=== PATIENT | female | born 1955 | race African-American/Black ===

== ENCOUNTER 2017-02-04 15:15 | Emergency (ER) | payer MEDICAID, MEDICARE ==
[~2017-02-04] VITALS: Ht 160 cm; Wt 72.6 kg
[~2017-02-04 15:15] MED LIST: ACET-1574 PO; ACET650S11 RC; ACET650S19 PO; ALBU2.5V5 IH; AMLO10TA2 PO; AMOX1TAB10 PO; AMOX1TAB61 PO; ASPI-482 PO; BISA10SU2 RC; CALC0.25 PO; CALC200T3 PO; CINA30TA2 PO; CIPR250T30 PO; CYCL10TA2 PO; DASA50TA PO; DEXT38GE2 PO; FLUT1DIS3 IH; FURO40TA4 PO; FURO80TA72 PO; GLUC1KIT IM; GUAI118L3 PO; HYDR-2758 PO; HYDR-2869 PO; LABE200T2 PO; LAMO100T5 PO; LAMO200T PO; LOSA25TA4 PO; MAG360OR24 PO; MAGN400O7 PO; MUPI15CR8 TP; PHEN14.52 MM; PHEN300C PO; POTA20TA82 PO; PROAIR HFA8.5 GM IH; SEVE800T9 PO; SIMV20TA3 PO
[2017-02-04] MEDS ORDERED: FOSPHENYTOIN 1,000 MG in IV NORMAL SALINE 50ML 50 ML IV ONE (17:15)
[2017-02-04 17:16] LABS: BASO # 0.3 x10^3/uL (0.0-0.2); BASO % 1 % (0-3); EOS % 1 % (0-3); HEMATOCRIT 32.7 % (36.0-47.0); HEMOGLOBIN 10.4 g/dL (12.0-15.5); LYMPH # 1.7 x10^3/uL (1.0-4.8); LYMPH % 4 % (24-48); MEAN CORPUSCULAR HEMOGLOBIN 32 pg (25-35); MEAN CORPUSCULAR HGB CONC 32 g/dL (31-37); MEAN CORPUSCULAR VOLUME 100 fL (79-100); MONO % 14 % (0-9); NEUT % 81 % (31-73); PLATELET COUNT 340 x10^3/uL (140-400); RED BLOOD COUNT 3.26 x10^6/uL (3.50-5.40); RED CELL DISTRIBUTION WIDTH 18.9 % (11.5-14.5)
[2017-02-04 17:18] LABS: WHITE BLOOD COUNT 44.5 x10^3/uL (4.0-11.0)
[2017-02-04 17:41] LABS: % BASOS 2 % (0-3); % EOS 1 % (0-5); ANISOCYTOSIS SLIGHT; PLT ESTIMATE ADEQUATE (ADEQUATE); POLYCHROMASIA SLIGHT
--- NOTE | 2017-02-04 17:46 | ED.ADGEN ---
Past Medical History Past Medical History: Cancer, CHF, Hypertension, Renal Failure, Seizure, Other Additional Past Medical Histor: leukemia Past Surgical History: Appendectomy, Colectomy, Hysterectomy, Other Additional Past Surgical Histo: right dialysis fistula; left lumpectomy; PACEMAKER Alcohol Use: None Drug Use: None Adult General Chief Complaint Chief Complaint: SEIZURE HPI HPI Patient is a 61 year old -[place] female with history of end-stage renal disease on dialysis and epilepsy presents with witnessed tonic-clonic seizure while at dialysis. Patient does not recall episode and was briefly postictal falling episode. Patient is currently prescribed Augmentin, but has been out of her seizure medication for the past 30 days as her local neurologist no longer takes her insurance type. Currently, patient reports mild headache, and dizziness. Denies nausea. Denies chest pain shortness of breath palpitations, fever chills, sweats, or extremity weakness or loss of sensation. No other acute symptoms or complaints. Review of Systems Review of Systems Review symptoms as per history of present illness. All other review symptoms are negative. Current Medications Current Medications Current Medications Medications (Trade) Dose Ordered Sig/Sg Start Time Stop Time Status Last Admin Dose Admin Fosphenytoin Sodium 1000 mg/ Sodium Chloride 70 ml @ 280 mls/hr 1X ONCE 02/04/17 17:15 02/04/17 17:29 DC 02/04/17 17:25 280 MLS/HR Allergies Allergies Allergies Coded Allergies Type Severity Reaction Last Updated Verified acetaminophen Allergy Intermediate Swelling 03/11/16 Yes lisinopril Allergy Intermediate 11/17/13 Yes Physical Exam Physical Exam Constitutional: Well developed, well nourished, no acute distress, non-toxic appearance. HENT: Normocephalic, atraumatic, bilateral external ears normal, oropharynx moist, no oral exudates, nose normal. Eyes: PERRLA, EOMI. Neck: Normal range of motion. Cardiovascular:Heart rate regular rhythm, no murmur. Lungs & Thorax: Bilateral breath sounds clear to auscultation. Abdomen: Bowel sounds normal, soft, no tenderness. Skin: Warm, dry. Extremities: No tenderness. Neurologic: Alert and oriented X 3, normal motor function, normal sensory function, no focal deficits noted. Psychologic: Affect normal, judgement normal, mood normal. Current Patient Data Vital Signs Vital Signs Date Time Temp Pulse Resp B/P (MAP) Pulse Ox O2 Delivery O2 Flow Rate FiO2 02/04/17 19:10 60 12 109/59 (76) 96 Room Air 02/04/17 15:28 98.7 98.7 Lab Values Laboratory Tests Test 02/04/17 16:14 02/04/17 17:50 White Blood Count 44.5 x10^3/uL (4.0-11.0) *H Red Blood Count 3.26 x10^6/uL (3.50-5.40) L Hemoglobin 10.4 g/dL (12.0-15.5) L Hematocrit 32.7 % (36.0-47.0) L Mean Corpuscular Volume 100 fL (79-100) Mean Corpuscular Hemoglobin 32 pg (25-35) Mean Corpuscular Hemoglobin Concent 32 g/dL (31-37) Red Cell Distribution Width 18.9 % (11.5-14.5) H Platelet Count 340 x10^3/uL (140-400) Neutrophils (%) (Auto) 81 % (31-73) H Lymphocytes (%) (Auto) 4 % (24-48) L Monocytes (%) (Auto) 14 % (0-9) H Eosinophils (%) (Auto) 1 % (0-3) Basophils (%) (Auto) 1 % (0-3) Neutrophils # (Auto) 35.9 x10^3uL (1.8-7.7) H Lymphocytes # (Auto) 1.7 x10^3/uL (1.0-4.8) Monocytes # (Auto) 6.0 x10^3/uL (0.0-1.1) H Eosinophils # (Auto) 0.6 x10^3/uL (0.0-0.7) Basophils # (Auto) 0.3 x10^3/uL (0.0-0.2) H Segmented Neutrophils % 58 % (35-66) Band Neutrophils % 13 % (0-9) H Lymphocytes % 1 % (24-48) L Monocytes % 14 % (0-10) H Eosinophils % 1 % (0-5) Basophils % 2 % (0-3) Metamyelocytes % 7 % (0-0) H Myelocytes % 4 % (0-0) H Platelet Estimate Adequate (ADEQUATE) Polychromasia Slight Anisocytosis Slight Sodium Level 141 mmol/L (136-145) Potassium Level 4.1 mmol/L (3.5-5.1) Chloride Level 101 mmol/L (98-107) Carbon Dioxide Level 32 mmol/L (21-32) Anion Gap 8 (6-14) Blood Urea Nitrogen 25 mg/dL (7-20) H Creatinine 4.5 mg/dL (0.6-1.0) H Estimated GFR (Cockcroft-Gault) 12.1 BUN/Creatinine Ratio 6 (6-20) Glucose Level 82 mg/dL (70-99) Calcium Level 7.8 mg/dL (8.5-10.1) L Total Bilirubin 0.3 mg/dL (0.2-1.0) Aspartate Amino Transferase (AST) 21 U/L (15-37) Alanine Aminotransferase (ALT) 16 U/L (14-59) Alkaline Phosphatase 237 U/L (46-116) H Total Protein 7.7 g/dL (6.4-8.2) Albumin 3.2 g/dL (3.4-5.0) L Albumin/Globulin Ratio 0.7 (1.0-1.7) L Laboratory Tests 02/04/17 16:14 Laboratory Tests 02/04/17 17:50 EKG EKG [] Radiology/Procedures Radiology/Procedures [] Course & Med Decision Making Course & Med Decision Making Pertinent Labs and Imaging studies reviewed. (See chart for details) [Breakthrough seizure secondary to missed medications. Patient without focal neurologic deficits with stable vital signs in the emergency department. IV Cerebyx given. Incidental note of patient with chronicly elevated white blood cell count. Patient without infectious symptoms.] Dragon Disclaimer Dragon Disclaimer This electronic medical record was generated, in whole or in part, using a voice recognition dictation system. JOSE VARGAS DO Feb 04, 2017 17:46
[2017-02-04 18:09] LABS: CALCIUM 7.8 mg/dL (8.5-10.1); CREATININE 4.5 mg/dL (0.6-1.0); GFR 12.1; POTASSIUM 4.1 mmol/L (3.5-5.1)
[2017-02-04 18:17] LABS: ALBUMIN 3.2 g/dL (3.4-5.0); ALBUMIN/GLOBULIN RATIO 0.7 (1.0-1.7); TOTAL BILIRUBIN 0.3 mg/dL (0.2-1.0); TOTAL PROTEIN 7.7 g/dL (6.4-8.2)
[2017-02-04 19:10] VITALS: BP 109/59
== END 2017-02-04 20:06 | disposition home or self-care (01) ==
LOC: ER 15:15
DX: G40.909 Epilepsy, unspecified, not intractable, without status epilepticus (principal); D72.829 Elevated white blood cell count, unspecified; I13.2 Hypertensive heart and chronic kidney disease with heart failure and with stage 5 chronic kidney disease, or end stage renal disease; I50.9 Heart failure, unspecified; N18.6 End stage renal disease; Z95.0 Presence of cardiac pacemaker; Z99.2 Dependence on renal dialysis; Z90.710 Acquired absence of both cervix and uterus; Z90.49 Acquired absence of other specified parts of digestive tract; Z88.8 Allergy status to other drugs, medicaments and biological substances; Z88.6 Allergy status to analgesic agent
CPT/HCPCS: 36415; 80053; 85007; 85027; 96365; 99284; Q2009

== ENCOUNTER 2017-10-30 06:33 | Inpatient (IN) | payer MEDICARE ==
[2017-10-30 07:15] LABS: ADD MAN DIFF? NO
[2017-10-30 07:27] LABS: BASO % 1 % (0-3); EOS # 0.2 x10^3/uL (0.0-0.7); EOS % 3 % (0-3); HEMATOCRIT 31.9 % (36.0-47.0); HEMOGLOBIN 10.7 g/dL (12.0-15.5); LYMPH # 1.7 x10^3/uL (1.0-4.8); LYMPH % 21 % (24-48); MEAN CORPUSCULAR HEMOGLOBIN 35 pg (25-35); MEAN CORPUSCULAR HGB CONC 34 g/dL (31-37); MEAN CORPUSCULAR VOLUME 105 fL (79-100); MONO # 1.2 x10^3/uL (0.0-1.1); MONO % 14 % (0-9); NEUT # 5.1 x10^3uL (1.8-7.7); NEUT % 62 % (31-73); PLATELET COUNT 346 x10^3/uL (140-400); RED BLOOD COUNT 3.05 x10^6/uL (3.50-5.40); RED CELL DISTRIBUTION WIDTH 14.7 % (11.5-14.5); WHITE BLOOD COUNT 8.2 x10^3/uL (4.0-11.0)
[2017-10-30 07:41] LABS: TROPONINI < 0.017 ng/mL (0.000-0.055)
[2017-10-30 07:55] LABS: ALBUMIN 2.9 g/dL (3.4-5.0); ALBUMIN/GLOBULIN RATIO 0.7 (1.0-1.7); ALK PHOS 160 U/L (46-116); ALT (SGPT) 10 U/L (14-59); ANION GAP 17 (6-14); AST (SGOT) 13 U/L (15-37); BLOOD UREA NITROGEN 115 mg/dL (7-20); BUN/CREATININE RATIO 9 (6-20); CALCIUM 8.2 mg/dL (8.5-10.1); CARBON DIOXIDE 25 mmol/L (21-32); CHLORIDE 99 mmol/L (98-107); CREATININE 13.3 mg/dL (0.6-1.0); GFR 3.4; GLUCOSE 91 mg/dL (70-99); SODIUM 141 mmol/L (136-145); TOTAL BILIRUBIN 0.3 mg/dL (0.2-1.0); TOTAL PROTEIN 7.3 g/dL (6.4-8.2)
[2017-10-30 07:56] LABS: POTASSIUM 6.1 mmol/L (3.5-5.1)
[2017-10-30] MEDS: NITROGLYCERIN SUBLINGUAL 0.4 MG BOTTLE OF 25. SL (08:10)
[2017-10-30] MEDS ORDERED: ONDANSETRON PF 4 MG/2 ML VIAL. IV ×2 (08:15→09:15)
[2017-10-30] MEDS ORDERED: fentaNYL PF VIAL 100 MCG/2 ML VIAL IV ×2 (08:15→09:30)
[2017-10-30] MEDS ORDERED: CONTRAST GIVEN MC (08:45)
[2017-10-30] MEDS ORDERED: IOHEXOL 300 MG/ML 100ML VIAL. IV (08:45)
[2017-10-30] MEDS ORDERED: CALCIUM CARBONATE 500 MG TAB.CHEW PO (09:15)
[2017-10-30] MEDS ORDERED: ALBUTEROL SULFATE 2.5 MG/3 ML NEBU. CONT NEB (09:15)
[2017-10-30] MEDS: lamoTRIgine 100 MG TABLET. PO ×2 (10:00→21:46)
[2017-10-30] MEDS: ASPIRIN ENTERIC COATED 81 MG TABLET.DR. PO (10:00)
[2017-10-30] MEDS: CINACALCET HCL 30 MG TABLET PO (10:00)
[2017-10-30] MEDS ORDERED: IV NORMAL SALINE 1000ML BAG 1,000 ML IV (10:11)
[2017-10-30] MEDS ORDERED: DIALYSIS PATIENT. MC (10:15)
[2017-10-30] MEDS ORDERED: ALBUMIN HUMAN 25% 200 ML IV (10:15)
[2017-10-30] MEDS: SEVELAMER CARBONATE 800 MG TABLET. PO ×2 (11:51→17:13)
[2017-10-30 13:17] LABS: POTASSIUM 3.2 mmol/L (3.5-5.1)
[2017-10-30] MEDS: traMADol 50 MG TABLET PO (15:56)
[2017-10-30] MEDS: PHENYTOIN SODIUM EXTENDED 100 MG CAPSULE PO (21:46)
[2017-10-31] MEDS: ASPIRIN ENTERIC COATED 81 MG TABLET.DR. PO (09:19)
[2017-10-31] MEDS: SEVELAMER CARBONATE 800 MG TABLET. PO ×3 (09:22→17:16)
[2017-10-31] MEDS: lamoTRIgine 100 MG TABLET. PO ×2 (09:27→20:33)
[2017-10-31] MEDS: CINACALCET HCL 30 MG TABLET PO (09:29)
[2017-10-31] MEDS ORDERED: MAGNESIUM SULFATE 2GM 50 ML IV (10:45)
[2017-10-31] MEDS: FOLIC/VIT B COMP W-C (RENAL) TABLET. PO (11:57)
[2017-10-31] MEDS: CALCIUM CARBONATE 500 MG TAB.CHEW PO (18:21)
[2017-10-31] MEDS: DARBEPOETIN ALFA 60 MCG/0.3 ML DISP.SYRIN. SQ (20:33)
[2017-10-31] MEDS: PHENYTOIN SODIUM EXTENDED 100 MG CAPSULE PO (20:33)
[2017-11-01 05:10] LABS: HEMOGLOBIN 10.8 g/dL (12.0-15.5)
[2017-11-01 05:38] LABS: ALBUMIN 2.8 g/dL (3.4-5.0); ANION GAP 11 (6-14); BLOOD UREA NITROGEN 64 mg/dL (7-20); CALCIUM 8.4 mg/dL (8.5-10.1); CARBON DIOXIDE 29 mmol/L (21-32); CHLORIDE 96 mmol/L (98-107); CREATININE 9.7 mg/dL (0.6-1.0); GLUCOSE 83 mg/dL (70-99); PHOSPHORUS 5.4 mg/dL (2.6-4.7); SODIUM 136 mmol/L (136-145)
[2017-11-01 05:45] LABS: POTASSIUM 5.5 mmol/L (3.5-5.1)
[2017-11-01 05:54] LABS: MAGNESIUM 2.6 mg/dL (1.8-2.4)
[2017-11-01] MEDS ORDERED: IV NORMAL SALINE 1000ML BAG 1,000 ML IV (08:41)
[2017-11-01] MEDS ORDERED: DIALYSIS PATIENT. MC ×2 (08:45)
[2017-11-01] MEDS: SEVELAMER CARBONATE 800 MG TABLET. PO ×2 (12:00→13:08)
[2017-11-01] MEDS: FOLIC/VIT B COMP W-C (RENAL) TABLET. PO (13:08)
[2017-11-01] MEDS: lamoTRIgine 100 MG TABLET. PO (13:08)
[2017-11-01] MEDS: ASPIRIN ENTERIC COATED 81 MG TABLET.DR. PO (13:09)
[2017-11-01] MEDS: CINACALCET HCL 30 MG TABLET PO (13:09)
== END 2017-11-01 13:52 | disposition home health service (06) | DRG 291 ==
LOC: ER 06:33 → 5 SOUTH 07:30
PROVIDERS: Internal Medicine
PROC: 5A1D70Z Performance of Urinary Filtration, Intermittent, Less than 6 Hours Per Day (ICD-10-PCS; principal; 2017-10-30)
PROC: 5A1D70Z Performance of Urinary Filtration, Intermittent, Less than 6 Hours Per Day (ICD-10-PCS; 2017-11-01)
DX: I13.2 Hypertensive heart and chronic kidney disease with heart failure and with stage 5 chronic kidney disease, or end stage renal disease (principal); N18.6 End stage renal disease; E87.5 Hyperkalemia; F32.9 Major depressive disorder, single episode, unspecified; I50.9 Heart failure, unspecified; I25.10 Atherosclerotic heart disease of native coronary artery without angina pectoris; D63.1 Anemia in chronic kidney disease; E21.3 Hyperparathyroidism, unspecified; J44.9 Chronic obstructive pulmonary disease, unspecified; Z79.82 Long term (current) use of aspirin; Z85.6 Personal history of leukemia; Z90.49 Acquired absence of other specified parts of digestive tract; Z90.710 Acquired absence of both cervix and uterus; Z88.8 Allergy status to other drugs, medicaments and biological substances; Z95.0 Presence of cardiac pacemaker; Z99.2 Dependence on renal dialysis
CPT/HCPCS: 36415; 71045; 78582; 80053; 80069; 83735; 84132; 84134; 84484; 85018; 85025; 93005; 94760; 96374; 97161-GP; 99285-25; A9540; A9558; J0881

== ENCOUNTER 2020-08-08 18:56 | Emergency (ER) | payer MEDICARE, MEDICAID ==
[~2020-08-08] VITALS: Ht 160 cm; Wt 75.5 kg
[~2020-08-08 18:56] MED LIST changes: -ACET-1574 PO; +ACET-1871 PO; +ACET650S PO; -ACET650S19 PO; +ALBU2.5V8 IH; +AMLO-187 PO; -AMLO10TA2 PO; -BISA10SU2 RC; +BISA10SU4 RC; +HALO2TAB PO; -HYDR-2758 PO; +HYDR-2761 PO; +IMAT400T6 PO; -LABE200T2 PO; +LABE200T4 PO; -LAMO200T PO; +LAMO200T6 PO; -LOSA25TA4 PO; +LOSA25TA54 PO; +POTA20TA4 PO; -POTA20TA82 PO; -PROAIR HFA8.5 GM IH; +SIMV20TA18 PO; -SIMV20TA3 PO
--- NOTE | 2020-08-08 19:12 | ED.ADGEN ---
Past Medical History Past Medical History: Cancer, CHF, Hypertension, Renal Failure, Seizure, Other Additional Past Medical Histor: leukemia Past Surgical History: Appendectomy, Colectomy, Hysterectomy, Other Additional Past Surgical Histo: right dialysis fistula; left lumpectomy;PAC EMAKER Smoking Status: Never Smoker Alcohol Use: None Drug Use: None General Adult HPI: HPI: Patient 64-year-old female with past medical history of epilepsy who presents to the emergency room after having 3 seizures today. Patient states she is feeling back to normal. She states that she typically has clusters of seizures. She does follow with a neurologist at but has not seen them for quite some time. After her last cluster of seizures she did not follow-up with them and no changes were made to her medications. She denies any other complaints. She has not been ill recently. She denies any chest pain, shortness of breath, URI symptoms, fevers, chills, sweats, dysuria, abdominal pain, nausea, vomiting, missed medication. She has generalized seizures. They typically last a minute or less. She did her dialysis today and was able to complete it. Review of Systems: Review of Systems: Complete ROS is negative unless otherwise documented in HPI Allergies: Allergies: Allergies Coded Allergies Type Severity Reaction Last Updated Verified acetaminophen Allergy Intermediate Swelling 03/11/16 Yes lisinopril Allergy Intermediate 11/17/13 Yes Physical Exam: PE: General: Awake, alert, NAD. Well Nourished, well hydrated. Cooperative HEENT: Atraumatic, EOMI, PERRL, airway patent, moist oral mucosa Neck: Supple, trachea midline Respiratory: CTA bilaterally, normal effort, no wheezing/crackles CV: RRR, no murmur, cap refill <2 GI: Soft, nondistended, nontender, no masses MSK: No obvious deformities, fistula on right upper arm Skin: Warm, dry, intact Neuro: A&O x3, speech NL, 5/5 strength in BUE/BLE distally and proximally, CN 2- 12 intact, cerebellar testing normal Psych: Normal affect, normal mood, not suicidal or homicidal EKG: EKG: [] Heart Score: Risk Factors: Risk Factors: DM, Current or recent (<one month) smoker, HTN, HLP, family h istory of CAD, obesity. Risk Scores: Score 0 - 3: 2.5% MACE over next 6 weeks - Discharge Home Score 4 - 6: 20.3% MACE over next 6 weeks - Admit for Clinical Observation Score 7 - 10: 72.7% MACE over next 6 weeks - Early Invasive Strategies Radiology/Procedures: Radiology/Procedures: [] Course & Med Decision Making: Course & Med Decision Making Pertinent Labs and Imaging studies reviewed. (See chart for details) Patient is a 64-year-old female who presents to the emergency room complaining of a cluster of seizures. Patient is neurologically intact and back at her baseline at this time. She has not missed any of her home medications. Is likely that she needs medication adjustments. I have discussed with her that she should follow-up with her neurologist tomorrow morning to determine if they would like to change her medications. She was loaded with Keppra here in the emergency room. Lab work was done to rule out any causes that would suggest a lower seizure threshold. Dragon Disclaimer: Dragon Disclaimer: This electronic medical record was generated, in whole or in part, using a voice recognition dictation system. Departure Departure Impression: Primary Impression: Seizure Additional Impression: ESRD (end stage renal disease) Disposition: 01 DC HOME SELF CARE/HOMELESS Condition: STABLE Referrals: [facility] (PCP) Patient Instructions: Seizure, Adult Additional Instructions: Please call your neurologist tomorrow to discuss any medication changes they would like to make. Problem Qualifiers CHADWICK CADENA MD Aug 08, 2020 19:12
[2020-08-08] MEDS ORDERED: levETIRAcetam 500 MG TABLET PO ONE (19:15)
[2020-08-08 19:47] LABS: BASO % 0 % (0-3); EOS % 0 % (0-3); HEMATOCRIT 31.9 % (36.0-47.0); HEMOGLOBIN 10.8 g/dL (12.0-15.5); LYMPH # 0.8 x10^3/uL (1.0-4.8); LYMPH % 10 % (24-48); MEAN CORPUSCULAR HEMOGLOBIN 35 pg (25-35); MEAN CORPUSCULAR HGB CONC 34 g/dL (31-37); MEAN CORPUSCULAR VOLUME 103 fL (79-100); MONO # 0.7 x10^3/uL (0.0-1.1); MONO % 9 % (0-9); NEUT # 6.3 x10^3/uL (1.8-7.7); NEUT % 80 % (31-73); PLATELET COUNT 237 x10^3/uL (140-400); WHITE BLOOD COUNT 7.8 x10^3/uL (4.0-11.0)
[2020-08-08 19:55] LABS: CREATININE 4.5 mg/dL (0.6-1.0); GFR 11.9; POTASSIUM 3.4 mmol/L (3.5-5.1)
[2020-08-08 20:03] VITALS: BP 140/72
== END 2020-08-08 20:26 | disposition home or self-care (01) ==
LOC: ER 18:56
DX: R56.9 Unspecified convulsions (principal); N18.6 End stage renal disease; Z85.9 Personal history of malignant neoplasm, unspecified; Z90.89 Acquired absence of other organs; Z95.0 Presence of cardiac pacemaker; Z98.890 Other specified postprocedural states; Z88.8 Allergy status to other drugs, medicaments and biological substances
CPT/HCPCS: 36415; 80048; 85025; 99284

== ENCOUNTER 2021-06-21 23:30 | Inpatient (IN) | payer MEDICARE, OTHER ==
[~2021-06-21] VITALS: Ht 160 cm; Wt 72.9 kg
[~2021-06-21 23:30] MED LIST changes: -CINA30TA2 PO; +CINA30TA24 PO; +CYCL10TA19 PO; -CYCL10TA2 PO
--- NOTE | 2021-06-21 23:30 | NUR ---
The patient, BETZY LOMAS, 65 y/o, F admitted by TUSHAR GLASS III, DO, was given written information regarding hospital policies, unit procedures and contact persons. Valuables were checked and documented. calllight in reach will cont to monitor pt status and safety. pmrn
[2021-06-21 23:35] VITALS: BP 148/68
[2021-06-22] MEDS ORDERED: 0.9 % SODIUM CHLORIDE 10 ML DISP.SYRIN. IV PRN (01:00)
[2021-06-22 02:52] VITALS: BP 154/77
[2021-06-22 07:00] VITALS: BP 140/64
--- NOTE | 2021-06-22 08:10 | PDOC1 ---
History and Physical Date of Admission Date of Admission DATE: 06/22/21 TIME: 08:10 Identification/Chief Complaint Chief Complaint syncope Source Source: Chart review, Patient History of Present Illness History of Present Illness MS. Wilkerson was transferred here last night from [facility], s/p a syncopal episode at home with a laceration to her mouth from the fall. She missed HD on saturday due to an access issue, is M/w/f schedule, then went to HD on 06/21, 2 liters removed, and she reports feeling lightheaded and subsequently passing out upon standing. has been compliant with her seizure meds, poss bipolar history from her meds on eliquis, Past Medical History Cardiovascular: CAD, CHF, HTN Pulmonary: COPD CENTRAL NERVOUS SYSTEM: Periperal neuropathy, Seizure GI: Constipation Heme/Onc: Cancer Musculoskeletal: low back pain, Osteoarthritis Renal/: Chronic renal failure Endocrine: Hyperparathyroidism Past Surgical History Past Surgical History: Pacemaker, Hysterectomy, Colon Resection, Other Family History Family History: Hypertension, Family History Unknown Social History Smoke: No ALCOHOL: none Drugs: None Current Medications Current Medications Current Medications Sodium Chloride (Normal Saline Flush) 3 ml PRN DAILY PRN IV AFTER MEDS AND BLOOD DRAWS; Start 06/22/21 at 01:00 Active Scripts Active Haloperidol 2 Mg Tablet 1 Tab PO BID 30 Days Lamictal (Lamotrigine) 100 Mg Tablet 300 Mg PO BID Reported Amlodipine Besylate 10 Mg Tablet 10 Mg PO DAILY Gleevec (Imatinib Mesylate) 400 Mg Tablet 400 Mg PO DAILY Tums (Calcium Carbonate) 200 Mg Tab.chew 200 Mg PO Sensipar (Cinacalcet Hcl) 30 Mg Tablet 2 Tab PO DAILY Renvela (Sevelamer Carbonate) 800 Mg Tablet 3 Tab PO TID Albuterol Sulfate Neb Soln (Albuterol Sulfate) 2.5 Mg/3 Ml Vial.neb 2.5 Mg IH Q4HRS PRN Aspir 81 (Aspirin) 81 Mg Tablet.dr 81 Mg PO DAILY NEXT DOSE: 04/21/15 AM Phenytek (Phenytoin Sodium Extended) 300 Mg Capsule 500 Mg PO QHS NEXT DOSE: 04/20/15 PM Allergies Allergies: Coded Allergies: acetaminophen (Verified Allergy, Intermediate, Swelling, 03/11/16) (FROM TYLENOL) lisinopril (Verified Allergy, Intermediate, 11/17/13) ROS General: YES: Fatigue, Malaise; No: Chills, Night Sweats, Appetite, Other PSYCHOLOGICAL ROS: YES: Memory difficulties, Sleep disturbances; No: Anxiety, Behavioral Disorder, Concentration difficultie, Decreased libido, Depression, Disorientation, Hallucinations, Hostility, Irritablity, Mood Swings, Obsessive thoughts, Other Eyes: Yes Itchy Eyes; No Blurry vision, No Decreased vision, No Double vision, No Dry eyes, No Excessive tearing, No Loss of vision, No Other HEENT: YES: Oral lesions; No: Heacaches, Visual Changes, Vertigo, Other ENDOCRINE: No: Breast Changes, Galactorrhea, Hair Pattern Changes, Hot Flashes, Malaise/lethargy, Mood Swings, Palpitations, Polydipsia/polyuria, Skin Changes, Temperature Intolerance, Unexpected Weight Changes, Other Respiratory: No: Cough, Hemoptysis, Orthopnea, Pleuritic Pain, Tachypnea, Wheezing, Other Cardiovascular: No Chest Pain, No Palpitations, No Orthopnea, No Paroxysmal Noc. Dyspnea, No Edema, No Lt Headedness, No Other Gastrointestinal: Yes Nausea; No Vomiting, No Abdominal Pain, No Diarrhea, No Constipation, No Melena, No Hematochezia, No Other Genitourinary: No Dysuria, No Frequency, No Incontinence, No Hematuria, No Retention, No Discharge, No Urgency, No Pain, No Flank Pain, No Other, No , No , No , No , No , No , No Musculoskeletal: Yes Joint Stiffness; No Gait Disturbance, No Joint Pain, No Joint Swelling, No Muscle Pain, No Muscular Weakness, No Pain In:, No Swelling In:, No Other Neurological: No Behavorial Changes, No Bowel/Bladder ControlChng, No Confusion, No Dizziness, No Gait Disturbance, No Headaches, No Impaired Coord/balance, No Memory Loss, No Numbness/Tingling, No Seizures, No Speech Problems, No Tremors, No Visual Changes, No Weakness, No Other Skin: Yes Dry Skin; No Eczema, No Hair Changes, No Lumps, No Mole Changes, No Mottling, No Nail Changes, No Pruritus, No Rash, No Skin Lesion Changes, No Other, No Acne Physical Exam General: Alert, Cooperative HEENT: PERRLA, Mucous membr. moist/pink, Other (upper lip swollen 3 stitches in upper lip, clear base, no redness ) Lungs: Normal air movement Heart: no gallops, no murmurs Abdomen: No tenderness Rectal Exam: not examined Extremities: No edema, Normal pulses Neuro: Normal speech, Normal tone Psych/Mental Status: Mental status NL Vitals Vitals Vital Signs Date Time Temp Pulse Resp B/P (MAP) Pulse Ox O2 Delivery O2 Flow Rate FiO2 06/22/21 02:52 98.1 73 16 154/77 (102) 100 Room Air 98.1 VTE Prophylaxis Ordered VTE Prophylaxis Devices: No VTE Pharmacological Prophylaxi: Yes Assessment/Plan Assessment/Plan syncope, on HD, eval for arrythmia, obs on tele at least 23 hours History of epilepsy on phenytoin and lamotrigine, she requested to see Dr. Cannon, meds reviewed, End-stage renal disease, on dialysis chronic distolic CHF, HTN Hx leukemia, NOS will hold Haldol started here months ago for agitation when we still had a psychiatrist, no diagnosis given at the time, plan was to wean off, Justifications for Admission Other Justification ANTIONE ROWAN MD Jun 22, 2021 08:10
[2021-06-22] MEDS ORDERED: ALBUTEROL SULFATE 2.5 MG/3 ML NEBU. INH PRN (08:30)
[2021-06-22] MEDS ORDERED: CALCIUM CARBONATE 500 MG TAB.CHEW PO SCH (09:00)
[2021-06-22] MEDS ORDERED: ASPIRIN ENTERIC COATED 81 MG TABLET.DR. PO SCH (09:00)
[2021-06-22] MEDS ORDERED: CINACALCET HCL 30 MG TABLET PO SCH (09:00)
[2021-06-22] MEDS ORDERED: HALOPERIDOL 2 MG TABLET. PO SCH (09:00)
[2021-06-22] MEDS ORDERED: lamoTRIgine 100 MG TABLET. PO SCH (09:00)
[2021-06-22] MEDS ORDERED: SEVELAMER CARBONATE 800 MG TABLET. PO SCH (09:00)
--- NOTE | 2021-06-22 09:53 | PDOC2 ---
NEUROLOGY CONSULT Date of Service DOS: DATE: 06/22/21 TIME: 09:45 Reason for Consult Reason for Consult: Fall, history of epilepsy Referring Physician Referring Physician: Dr. Solorio Source Source: Chart review, Patient History of Present Illness History of Present Illness Patient is a 65-year-old right-handed female who fainted at home after dialysis yesterday. She remembers going to dialysis and the next thing she remembers is being on the floor at home. She has had syncope in the past. She has a long history of intractable epilepsy with abnormal EEG showing a left temporal focus. I have followed her for this, she was last in the office in 2016. Since then, she has been going to . I see that they recently switched her from lamotrigine to zonisamide. I did see the patient 18 months ago during the hospital stay for metabolic. Patient did have a laceration repair at [facility]. She had negative imaging studies as reviewed below. She still feels a little woozy, she says. She has a past history of strokes and peripheral neuropathy as well. She has had strokes in the past. With patient's permission I reviewed her [facility] chart. Past Medical History Cardiovascular: HTN, Hyperlipidemia, Other (bradycardia) Pulmonary: Asthma, Pneumonia CENTRAL NERVOUS SYSTEM: Periperal neuropathy, Seizure (Intractable epilepsy) Heme/Onc: Anemia NOS, Cancer (Chronic myelocytic leukemia) ENT: Other (Glaucoma) Renal/: Chronic renal insuff (Stage IV) Endocrine: Hyperparathyroidism (Secondary), Other (Vitamin D deficiency) Past Surgical History Past Surgical History: Pacemaker, Cataract Removal, Other (Benign breast lump) Family History Family History: No pertinent hx Social History Social History , no alcohol or tobacco Current Medications Current Medications Current Medications Sodium Chloride (Normal Saline Flush) 3 ml PRN DAILY PRN IV AFTER MEDS AND BLOOD DRAWS; Start 06/22/21 at 01:00 Albuterol Sulfate (Ventolin Neb Soln) 2.5 mg PRN Q4HRS PRN INH SHORTNESS OF BREATH; Start 06/22/21 at 08:30; Status Cancel Amlodipine Besylate (Norvasc) 5 mg DAILY PO ; Start 06/22/21 at 09:00; Status Cancel Aspirin (Ecotrin) 81 mg DAILY PO ; Start 06/22/21 at 09:00; Status Cancel Calcium Carbonate/ Glycine (Tums) 500 mg BID PO ; Start 06/22/21 at 09:00; Status Cancel Cinacalcet (Sensipar) 60 mg DAILY PO ; Start 06/22/21 at 09:00; Status Cancel Haloperidol (Haldol) 2 mg BID PO ; Start 06/22/21 at 09:00; Status Cancel Lamotrigine (LaMICtal) 300 mg BID PO ; Start 06/22/21 at 09:00; Status UNV Sevelamer Carbonate (Renvela) 2,400 mg TIDWMEALS PO ; Start 06/22/21 at 09:00; Status Cancel Phenytoin Sodium (Dilantin) 500 mg QHS PO ; Start 06/22/21 at 21:00; Status Cancel Active Scripts Active Haloperidol 2 Mg Tablet 1 Tab PO BID 30 Days Lamictal (Lamotrigine) 100 Mg Tablet 300 Mg PO BID Reported Amlodipine Besylate 10 Mg Tablet 10 Mg PO DAILY Gleevec (Imatinib Mesylate) 400 Mg Tablet 400 Mg PO DAILY Tums (Calcium Carbonate) 200 Mg Tab.chew 200 Mg PO Sensipar (Cinacalcet Hcl) 30 Mg Tablet 2 Tab PO DAILY Renvela (Sevelamer Carbonate) 800 Mg Tablet 3 Tab PO TID Albuterol Sulfate Neb Soln (Albuterol Sulfate) 2.5 Mg/3 Ml Vial.neb 2.5 Mg IH Q4HRS PRN Aspir 81 (Aspirin) 81 Mg Tablet.dr 81 Mg PO DAILY NEXT DOSE: 04/21/15 AM Phenytek (Phenytoin Sodium Extended) 300 Mg Capsule 500 Mg PO QHS NEXT DOSE: 04/20/15 PM Allergies Allergies: Coded Allergies: acetaminophen (Verified Allergy, Intermediate, Swelling, 03/11/16) (FROM TYLENOL) lisinopril (Verified Allergy, Intermediate, 11/17/13) ROS Review of System Negative for fever, chills, weight loss, shortness of breath, chest pain, indigestion, hematochezia, melena, and dysuria. Full 14-point review of systems is negative. Physical Exam Physical Examination General: Well-developed, well-nourished black female in no acute distress HEENT: Normocephalic andatraumatic.Temporal arteriespulsatile and nontender. Neck: Supple without bruit, no meningismus Musculoskeletal: Stability:see neurologic. Gait exam:see neurologic. Tone:see neurologic.Strength:see neurologic. Neurological: Mental Status:orientation, memory, attention span/concentration, language, fund of knowledge: Lethargic, arouses fairly easily, can tell me her name, follows a few commands, does not know date, does know location location. Cranial Nerves:Pupils equal and reactive to light, extraocular movements areintact, visual kearns are full to confrontation. Facial sensation is normal. There is a right central facial weakness. Vestibulo-ocular reflex is intact. Palate elevates and tongue protrudes in midline. All other cranial related problems are negative except as mentioned before.Reflexes:1+ and symmetric with flexor plantar responses. Motor:4/5 strength, weaker on the right, with normal tone and bulk. Coordination and gait:not cooperative. Sensory:stocking loss. Vitals VITALS Vital Signs Date Time Temp Pulse Resp B/P (MAP) Pulse Ox O2 Delivery O2 Flow Rate FiO2 06/22/21 07:00 98.6 72 16 140/64 (89) 100 Room Air 98.6 Images Images [facility], 06/21: CT HEAD INDICATION: Reason: syncope, fall COMPARISON: None Available. Exposure: One or more of the following individualized dose reduction techniques were utilized for this examination: 1. Automated exposure control 2. Adjustment of the mA and/or kV according to patient size 3. Use of iterative reconstruction technique TECHNIQUE: 5 mm contiguous axial images were obtained from the skull base to the vertex in both bone and soft tissue algorithm. FINDINGS: Mild bilateral periventricular white matter hypodensities likely chronic small vessel ischemic disease. Mild soft tissue swelling identified in the right forehead region likely secondary to injury. No evidence of acute intracranial hemorrhage. No extra-axial fluid collections. No mass effect or midline shift. Ventricular size is appropriate. Basal cisterns are patent. No fractures identified.Sutton-white differentiation is preserved.Globes and orbi ts are within normal limits. Paranasal sinuses and mastoid air cells are clear. CT CERVICAL SPINE INDICATION: Reason: syncope / Spl. Instructions: / History: COMPARISON: None Available. Technique: 2.5 mm contiguous axial images were obtained from the skull base through the cervicothoracic junction in both bone and soft tissue algorithm. Additional sagittal and coronal reconstructions were also performed. FINDINGS: Vertebral body height and alignment are maintained. Cervical lordosis is preserved. The lateral masses of C1 are aligned upon C2. No fractures identified. The bony canal is patent throughout. Moderate intervertebral disc height loss identified in cervical spine most at C5-C6 vertebral levels with small anterior and posterior osteophyte formation. The paraspinous soft tissues are unremarkable. Visualized intracranial contents are unremarkable. Lung apices are clear. IMPRESSION: 1. No acute intracranial findings. Mild soft tissue swelling identified in the right forehead region likely secondary to injury. 2. No acute fracture cervical spine. 3. Moderate degenerative changes cervical spine. Assessment/Plan Assessment/Plan Impression: Syncope, fall, head injury Prior stroke although I do not find a focal exam last time I saw her in 2019. Intractable left temporal lobe epilepsy Recommendations: Current anticonvulsants Check phenytoin level Repeat head CT tomorrow, has a pacemaker Elevated troponin level work-up per internal medicine, maximum was [address] Solorio Thank you for letting me help with the patient's care. YISEL GILLESPIE MD Jun 22, 2021 09:53
[2021-06-22] MEDS ORDERED: APIX5TAB PO (10:15)
[2021-06-22] MEDS ORDERED: PHEN200C3 PO (10:15)
[2021-06-22] MEDS ORDERED: NITR0.4T2 SL (10:15)
[2021-06-22] MEDS ORDERED: PHEN30CA PO (10:15)
[2021-06-22] MEDS ORDERED: CLON0.5T4 PO (10:15)
[2021-06-22 11:00] VITALS: BP 145/65
[2021-06-22] MEDS ORDERED: METO-239 PO (11:22)
[2021-06-22] MEDS ORDERED: FLUT16SP NS (11:22)
[2021-06-22] MEDS ORDERED: ATOR40TA59 PO (11:22)
[2021-06-22] MEDS ORDERED: DICL100G28 TP (11:22)
[2021-06-22] MEDS ORDERED: ZONI100C26 PO (11:22)
[2021-06-22] MEDS ORDERED: AMLO-186 PO (11:22)
--- NOTE | 2021-06-22 11:24 | PDOC2 ---
CONSULT Date of Consult Date of Consult DATE: 06/22/21 TIME: 11:20 Reason for Consult Reason for Consult: ESRD Referring Physician Referring Physician: MARIA LUISA Identification/Chief Complaint Chief Complaint FALL Source Source: Chart review, Patient History of Present Illness Reason for Visit: THIS IS A 65 YR OLD PT WITH ESRD. ON HD MWF. HAS A RIGHT ARM AVF. HAD A SYNCOPE EPISODE WITH LACERATION TO HER LEFT UPPER LIP AREA. NEUROLOGY EVALUATION ONGOING AT THIS TIME. SHE HAD A RIGHT ARM AV ACCESS THROMBECTOMY ON SATURDAY. HAD HER OP HD YESTERDAY Past Medical History Cardiovascular: HTN, Hyperlipidemia, Other (bradycardia) Pulmonary: Asthma, Pneumonia CENTRAL NERVOUS SYSTEM: Periperal neuropathy, Seizure (Intractable epilepsy) GI: Constipation Heme/Onc: Anemia NOS, Cancer (Chronic myelocytic leukemia) Musculoskeletal: low back pain, Osteoarthritis ENT: Other (Glaucoma) Renal/: Chronic renal insuff (Stage IV) Endocrine: Hyperparathyroidism (Secondary), Other (Vitamin D deficiency) Past Surgical History Past Surgical History: Pacemaker, Cataract Removal, Other (Benign breast lump) Family History Family History: Hypertension, Family History Unknown Social History No ALCOHOL: none Drugs: None Lives: with Family Current Medications Current Medications Current Medications Sodium Chloride (Normal Saline Flush) 3 ml PRN DAILY PRN IV AFTER MEDS AND BLOOD DRAWS; Start 06/22/21 at 01:00 Albuterol Sulfate (Ventolin Neb Soln) 2.5 mg PRN Q4HRS PRN INH SHORTNESS OF BREATH; Start 06/22/21 at 08:30; Status Cancel Amlodipine Besylate (Norvasc) 5 mg DAILY PO ; Start 06/22/21 at 09:00; Status Cancel Aspirin (Ecotrin) 81 mg DAILY PO ; Start 06/22/21 at 09:00; Status Cancel Calcium Carbonate/ Glycine (Tums) 500 mg BID PO ; Start 06/22/21 at 09:00; Status Cancel Cinacalcet (Sensipar) 60 mg DAILY PO ; Start 06/22/21 at 09:00; Status Cancel Haloperidol (Haldol) 2 mg BID PO ; Start 06/22/21 at 09:00; Status Cancel Lamotrigine (LaMICtal) 300 mg BID PO ; Start 06/22/21 at 09:00; Status UNV Sevelamer Carbonate (Renvela) 2,400 mg TIDWMEALS PO ; Start 06/22/21 at 09:00; Status Cancel Phenytoin Sodium (Dilantin) 500 mg QHS PO ; Start 06/22/21 at 21:00; Status Cancel Active Scripts Active Haloperidol 2 Mg Tablet 1 Tab PO BID 30 Days Reported Clonazepam 0.5 Mg Tablet 0.5 Mg PO PRN BID PRN Nitrostat (Nitroglycerin) 0.4 Mg Tab.subl 0.4 Mg SL PRN Q5MIN PRN Phenytoin Sodium Extended 200 Mg Capsule 200 Mg PO QHS Dilantin (Phenytoin Sodium Extended) 30 Mg Capsule 30 Mg PO QHS Eliquis (Apixaban) 5 Mg Tablet 1 Tab PO BID Amlodipine Besylate 10 Mg Tablet 10 Mg PO DAILY Gleevec (Imatinib Mesylate) 400 Mg Tablet 400 Mg PO DAILY Tums (Calcium Carbonate) 200 Mg Tab.chew 200 Mg PO Sensipar (Cinacalcet Hcl) 30 Mg Tablet 2 Tab PO DAILY Renvela (Sevelamer Carbonate) 800 Mg Tablet 3 Tab PO TID Albuterol Sulfate Neb Soln (Albuterol Sulfate) 2.5 Mg/3 Ml Vial.neb 2.5 Mg IH Q4HRS PRN Aspir 81 (Aspirin) 81 Mg Tablet.dr 81 Mg PO DAILY NEXT DOSE: 04/21/15 AM Allergies Allergies: Coded Allergies: acetaminophen (Verified Allergy, Intermediate, Swelling, 03/11/16) (FROM TYLENOL) lisinopril (Verified Allergy, Intermediate, 11/17/13) ROS General: YES: Appetite PSYCHOLOGICAL ROS: YES: Depression Eyes: Yes Decreased vision HEENT: YES: Janak ALLERGY AND IMMUNOLOGY: YES: Seasonal Allergies Respiratory: YES: Cough Cardiovascular: yes Lt Headedness Gastrointestinal: Yes Constipation Genitourinary: YES Other (ANURIA) Musculoskeletal: Yes Joint Stiffness, Yes Muscular Weakness Neurological: Yes Weakness Skin: Yes Dry Skin Physical Exam Physical Exam RIGHT ARM AVF HAS GOOD THRILL AND BRUIT General: Alert, Oriented X3, Cooperative, No acute distress HEENT: Atraumatic Lungs: Clear to auscultation Heart: Regular rate Abdomen: Normal bowel sounds, Soft, No tenderness Extremities: No cyanosis Skin: No breakdown Neuro: Normal speech Psych/Mental Status: Mental status NL MUSCULOSKELETAL: No joint tenderness, No deformity, No swelling Vitals VITALS Vital Signs Date Time Temp Pulse Resp B/P (MAP) Pulse Ox O2 Delivery O2 Flow Rate FiO2 06/22/21 07:00 98.6 72 16 140/64 (89) 100 Room Air 98.6 Assessment/Plan Assessment/Plan IMP [id number] ARM AVG SYNCOPE HX OF SEIZURES HTN HX PLAN HD MWF ANIL NEEDED WILL FOLLOW OWEN HUSTON MD Jun 22, 2021 11:23
[2021-06-22] MEDS ORDERED: NITROGLYCERIN SUBLINGUAL 0.4 MG BOTTLE OF 25. SL PRN (11:45)
[2021-06-22] MEDS ORDERED: clonazePAM 0.5 MG TABLET PO PRN (11:45)
[2021-06-22] MEDS: ZONISAMIDE 100 MG CAPSULE. PO SCH (12:22)
[2021-06-22] MEDS: METOPROLOL SUCC 24HR ER 25 MG TAB.ER.24H. PO SCH (12:23)
[2021-06-22] MEDS: APIXABAN 5 MG TABLET. PO SCH ×2 (12:23→20:57)
--- NOTE | 2021-06-22 12:28 | NUR ---
SS following for discharge planning. SS reviewed pt chart and discussed with pt RN. Pt is from home and is currently on room air. Nephrology and Neurology consulted. Pt has outpatient hemodialysis at [facility], ; fax [phone], Saturday, Saturday, and Saturday. SS will continue to follow for discharge planning.
[2021-06-22] MEDS: DICLOFENAC SODIUM 1% TOPICAL GEL 100GM TUBE. TP SCH ×3 (13:00→20:57)
[2021-06-22 15:00] VITALS: BP 137/69
[2021-06-22 19:00] VITALS: BP 139/62
[2021-06-22] MEDS: PHENYTOIN SODIUM EXTENDED 30 MG CAPSULE. PO SCH (20:57)
[2021-06-22] MEDS: PHENYTOIN SODIUM EXTENDED 100 MG CAPSULE PO SCH (20:57)
[2021-06-22] MEDS: ATORVASTATIN CALCIUM 40 MG TABLET. PO SCH (20:57)
[2021-06-22] MEDS ORDERED: PHENYTOIN SODIUM EXTENDED 100 MG CAPSULE PO SCH (21:00)
[2021-06-22 22:35] VITALS: BP 141/65
[2021-06-23 03:21] VITALS: BP 159/68
[2021-06-23 05:33] LABS: HEMATOCRIT 23.5 % (36.0-47.0); RED BLOOD COUNT 2.31 x10^6/uL (3.50-5.40); RED CELL DISTRIBUTION WIDTH 15.7 % (11.5-14.5); WHITE BLOOD COUNT 5.1 x10^3/uL (4.0-11.0)
[2021-06-23 05:41] LABS: CALCIUM 8.3 mg/dL (8.5-10.1); CREATININE 8.6 mg/dL (0.6-1.0); GFR 5.6; POTASSIUM 4.5 mmol/L (3.5-5.1)
[2021-06-23 06:15] VITALS: BP 148/62
[2021-06-23] MEDS ORDERED: DIALYSIS PATIENT. MC PRN (06:15)
[2021-06-23] MEDS ORDERED: IV NORMAL SALINE 1000ML BAG 1,000 ML IV PRN ×2 (06:15)
--- NOTE | 2021-06-23 09:26 | PDOC ---
PROGRESS NOTES Date of Service DATE: 06/23/21 TIME: 09:23 Assessment Syncope, fall, head injury Prior stroke although I do not find a focal exam last time I saw her in 2019. 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 Oriented to place and person, not date. PERRL. EOMI. CN: no focal findings. No longer has the right facial palsy Muscle tone: normal. Muscle strength: 4/5 DTR: 1+ Plantar reflex: Flexor Gait: not examined in bed. Sensory exam: Stocking loss. No cerebellar signs elicited. Review of Relevant I have reviewed the following items rohini (where applicable) has been applied. Labs Laboratory Tests Test 06/23/21 05:00 White Blood Count 5.1 x10^3/uL (4.0-11.0) Red Blood Count 2.31 x10^6/uL (3.50-5.40) Hemoglobin 8.0 g/dL (12.0-15.5) Hematocrit 23.5 % (36.0-47.0) Mean Corpuscular Volume 102 fL (79-100) Mean Corpuscular Hemoglobin 35 pg (25-35) Mean Corpuscular Hemoglobin Concent 34 g/dL (31-37) Red Cell Distribution Width 15.7 % (11.5-14.5) Platelet Count 133 x10^3/uL (140-400) Sodium Level 139 mmol/L (136-145) Potassium Level 4.5 mmol/L (3.5-5.1) Chloride Level 101 mmol/L (98-107) Carbon Dioxide Level 29 mmol/L (21-32) Anion Gap 9 (6-14) Blood Urea Nitrogen 46 mg/dL (7-20) Creatinine 8.6 mg/dL (0.6-1.0) Estimated GFR (Cockcroft-Gault) 5.6 Glucose Level 83 mg/dL (70-99) Calcium Level 8.3 mg/dL (8.5-10.1) Phenytoin (Dilantin) Level 5.0 mcg/mL (10.0-20.0) Phenytoin Last Dose Date 06/22/21 Phenytoin Last Dose Time 2100 Laboratory Tests Test 06/23/21 05:00 White Blood Count 5.1 x10^3/uL (4.0-11.0) Red Blood Count 2.31 x10^6/uL (3.50-5.40) Hemoglobin 8.0 g/dL (12.0-15.5) Hematocrit 23.5 % (36.0-47.0) Mean Corpuscular Volume 102 fL (79-100) Mean Corpuscular Hemoglobin 35 pg (25-35) Mean Corpuscular Hemoglobin Concent 34 g/dL (31-37) Red Cell Distribution Width 15.7 % (11.5-14.5) Platelet Count 133 x10^3/uL (140-400) Sodium Level 139 mmol/L (136-145) Potassium Level 4.5 mmol/L (3.5-5.1) Chloride Level 101 mmol/L (98-107) Carbon Dioxide Level 29 mmol/L (21-32) Anion Gap 9 (6-14) Blood Urea Nitrogen 46 mg/dL (7-20) Creatinine 8.6 mg/dL (0.6-1.0) Estimated GFR (Cockcroft-Gault) 5.6 Glucose Level 83 mg/dL (70-99) Calcium Level 8.3 mg/dL (8.5-10.1) Phenytoin (Dilantin) Level 5.0 mcg/mL (10.0-20.0) Phenytoin Last Dose Date 06/22/21 Phenytoin Last Dose Time 2100 Medications Current Medications Sodium Chloride (Normal Saline Flush) 3 ml PRN DAILY PRN IV AFTER MEDS AND BLOOD DRAWS; Start 06/22/21 at 01:00 Albuterol Sulfate (Ventolin Neb Soln) 2.5 mg PRN Q4HRS PRN INH SHORTNESS OF BREATH; Start 06/22/21 at 08:30; Status Cancel Amlodipine Besylate (Norvasc) 5 mg DAILY PO ; Start 06/22/21 at 09:00; Status Cancel Aspirin (Ecotrin) 81 mg DAILY PO ; Start 06/22/21 at 09:00; Status Cancel Calcium Carbonate/ Glycine (Tums) 500 mg BID PO ; Start 06/22/21 at 09:00; Status Cancel Cinacalcet (Sensipar) 60 mg DAILY PO ; Start 06/22/21 at 09:00; Status Cancel Haloperidol (Haldol) 2 mg BID PO ; Start 06/22/21 at 09:00; Status Cancel Lamotrigine (LaMICtal) 300 mg BID PO ; Start 06/22/21 at 09:00; Status UNV Sevelamer Carbonate (Renvela) 2,400 mg TIDWMEALS PO ; Start 06/22/21 at 09:00; Status Cancel Phenytoin Sodium (Dilantin) 500 mg QHS PO ; Start 06/22/21 at 21:00; Status Cancel Amlodipine Besylate (Norvasc) 5 mg DAILY PO Last administered on 06/22/21at 12:23; Start 06/22/21 at 12:00 Apixaban (Eliquis) 5 mg BID PO Last administered on 06/22/21at 20:57; Start 06/22/21 at 12:00 Atorvastatin Calcium (Lipitor) 40 mg QHS PO Last administered on 06/22/21at 20:57; Start 06/22/21 at 21:00 Clonazepam (KlonoPIN) 0.5 mg PRN BID PRN PO ANXIETY / AGITATION; Start 06/22/21 at 11:45 Diclofenac Sodium (Voltaren) 1 kasey QID TP Last administered on 06/22/21at 20:57; Start 06/22/21 at 13:00 Fluticasone Propionate (Flonase) 2 spray DAILY NS ; Start 06/23/21 at 09:00 Metoprolol Succinate (Toprol Xl) 12.5 mg DAILY PO Last administered on 06/22/21at 12:23; Start 06/22/21 at 12:00 Nitroglycerin (Nitrostat) 0.4 mg PRN Q5MIN PRN SL CHEST PAIN; Start 06/22/21 at 11:45 Phenytoin Sodium (Dilantin) 30 mg QHS PO Last administered on 06/22/21at 20:57; Start 06/22/21 at 21:00 Zonisamide (Zonegran) 300 mg DAILY PO Last administered on 06/22/21at 12:22; Start 06/22/21 at 12:00 Phenytoin Sodium (Dilantin) 200 mg QHS PO Last administered on 06/22/21at 20:57; Start 06/22/21 at 21:00 Sodium Chloride 1,000 ml @ 1,000 mls/hr Q1H PRN IV hypotension; Start 06/23/21 at 06:15; Stop 06/23/21 at 12:14 Sodium Chloride 1,000 ml @ 400 mls/hr Q2H30M PRN IV PATENCY; Start 06/23/21 at 06:15; Stop 06/23/21 at 18:14 Info (PHARMACY MONITORING -- do not chart) 1 each PRN DAILY PRN MC SEE COMMENTS; Start 06/23/21 at 06:15 Active Scripts Active Reported Zonisamide 100 Mg Capsule 300 Cap PO DAILY Metoprolol Succinate ( Xl ) (Metoprolol Succinate) 25 Mg Tab.er.24h 12.5 Mg PO DAILY Atorvastatin Calcium 40 Mg Tablet 40 Mg PO QHS Fluticasone Propionate Nasal [place] (Fluticasone Propionate) 16 Gm [place].susp 2 Sprays NS DAILY Diclofenac Sodium 100 Gm Gel..gram. 1 Kasey TP QID Amlodipine Besylate 5 Mg Tablet 5 Mg PO DAILY Clonazepam 0.5 Mg Tablet 0.5 Mg PO PRN BID PRN Nitrostat (Nitroglycerin) 0.4 Mg Tab.subl 0.4 Mg SL PRN Q5MIN PRN Phenytoin Sodium Extended 200 Mg Capsule 200 Mg PO QHS Dilantin (Phenytoin Sodium Extended) 30 Mg Capsule 30 Mg PO QHS Eliquis (Apixaban) 5 Mg Tablet 1 Tab PO BID Aspir 81 (Aspirin) 81 Mg Tablet.dr 81 Mg PO DAILY NEXT DOSE: 04/21/15 AM Vitals/I & O Vital Sign - Last 24 Hours 06/22/21 06/22/21 06/22/21 06/22/21 11:00 12:23 12:23 15:00 Temp 98.0 98.2 98.0 98.2 Pulse 76 85 80 81 Resp 16 16 B/P (MAP) 145/65 (91) 137/69 (91) Pulse Ox 100 100 O2 Delivery Room Air Room Air 06/22/21 06/22/21 06/22/21 06/23/21 19:00 19:20 22:35 03:21 Temp 99.3 98.5 98.0 99.3 98.5 98.0 Pulse 83 72 72 Resp 16 16 16 B/P (MAP) 139/62 (87) 141/65 (90) 159/68 (98) Pulse Ox 100 96 96 O2 Delivery Room Air Room Air Room Air Room Air 06/23/21 06:15 Temp 98.0 98.0 Pulse 79 Resp 18 B/P (MAP) 148/62 (90) Pulse Ox 97 O2 Delivery Room Air Intake and Output 06/22/21 06/22/21 06/23/21 15:00 23:00 07:00 Intake Total 420 ml 345 ml 100 ml Balance 420 ml 345 ml 100 ml Justicifation of Admission Dx: Justifications for Admission: Justification of Admission Dx: N/A YISEL GILLESPIE MD Jun 23, 2021 09:26
[2021-06-23 11:05] VITALS: BP 162/54
--- NOTE | 2021-06-23 11:39 | PDOC ---
Renal-Progress Notes Subjective Notes Notes NO NEW COMPLAINTS History of Present Illness Hx of present illness STABLE Vitals Vitals Vital Signs Date Time Temp Pulse Resp B/P (MAP) Pulse Ox O2 Delivery O2 Flow Rate FiO2 06/23/21 11:05 98.9 76 162/54 (90) 98 Room Air 98.9 06/23/21 06:15 18 Weight Weight [ ] I.O. Intake and Output Intake and Output 06/23/21 07:00 Intake Total 865 ml Balance 865 ml Intake Oral 865 ml Labs Labs Laboratory Tests Test 06/23/21 05:00 White Blood Count 5.1 x10^3/uL (4.0-11.0) Red Blood Count 2.31 x10^6/uL (3.50-5.40) Hemoglobin 8.0 g/dL (12.0-15.5) Hematocrit 23.5 % (36.0-47.0) Mean Corpuscular Volume 102 fL (79-100) Mean Corpuscular Hemoglobin 35 pg (25-35) Mean Corpuscular Hemoglobin Concent 34 g/dL (31-37) Red Cell Distribution Width 15.7 % (11.5-14.5) Platelet Count 133 x10^3/uL (140-400) Sodium Level 139 mmol/L (136-145) Potassium Level 4.5 mmol/L (3.5-5.1) Chloride Level 101 mmol/L (98-107) Carbon Dioxide Level 29 mmol/L (21-32) Anion Gap 9 (6-14) Blood Urea Nitrogen 46 mg/dL (7-20) Creatinine 8.6 mg/dL (0.6-1.0) Estimated GFR (Cockcroft-Gault) 5.6 Glucose Level 83 mg/dL (70-99) Calcium Level 8.3 mg/dL (8.5-10.1) Phenytoin (Dilantin) Level 5.0 mcg/mL (10.0-20.0) Phenytoin Last Dose Date 06/22/21 Phenytoin Last Dose Time 2100 Review of Systems Constitutional: yes: alert, oriented Ears/Nose/Throat: Yes: no symptom reported Eyes: Yes: no symptom reported Pulmonary: Yes no symptom reported Cardiovascular: Yes no symptom reported Gastrointestional: Yes: no symptom reported Genitourinary: Yes: no symptom reported Skin: Yes no symptom reported Psychiatric/Neurological: Yes: no symptom reported Endocrine: Yes: no symptom reported Physical Exam General Appearance: no apparent distress Skin: warm Respiratory: bilateral CTA Heart: S1S2 Abdomen: soft, bowel sounds present Genitourinary: bladder flat Extremities: pulses present Neurology: alert, oriented Assessment Assessment IMP [id number] ARM AVG SYNCOPE HX OF SEIZURES HTN HX PLAN HD TODAY UF TO TW ANIL NEEDED WILL FOLLOW OWEN HUSTON MD Jun 23, 2021 11:39
[2021-06-23] MEDS: FLUTICASONE 50MCG/NASAL SPRAY 16GM BOTTLE. NS SCH (11:43)
[2021-06-23] MEDS: DICLOFENAC SODIUM 1% TOPICAL GEL 100GM TUBE. TP SCH ×4 (11:44→20:35)
[2021-06-23] MEDS: METOPROLOL SUCC 24HR ER 25 MG TAB.ER.24H. PO SCH (11:44)
[2021-06-23] MEDS: APIXABAN 5 MG TABLET. PO SCH ×2 (11:45→20:34)
[2021-06-23] MEDS: ZONISAMIDE 100 MG CAPSULE. PO SCH (11:45)
--- NOTE | 2021-06-23 11:51 | PDOC ---
[employer] PROGRESS NOTE Date of Service DOS: DATE: 06/23/21 TIME: 11:48 Chief Complaint Chief Complaint syncope, vagal, telemetry has not shown defect History of epilepsy on phenytoin and lamotrigine, she requested to see Dr. Cannon, [facility], End-stage renal disease, on dialysis chronic distolic CHF, HTN Hx leukemia, NOS History of Present Illness History of Present Illness Prior stroke has no residual, to repeat CT head today, neuro following she reports she is too weak to get up today, will start PT and OT, per NEURO consult, right sided weakness could be Wilfrido's paralysis Vitals/I&O Vitals/I&O: Vital Signs Date Time Temp Pulse Resp B/P (MAP) Pulse Ox O2 Delivery O2 Flow Rate FiO2 06/23/21 11:05 98.9 76 162/54 (90) 98 Room Air 98.9 06/23/21 06:15 18 I & O 06/22/21 06/22/21 06/23/21 15:00 23:00 07:00 Intake Total 420 ml 345 ml 100 ml Balance 420 ml 345 ml 100 ml Physical Exam General: Alert, Oriented X3, Cooperative, No acute distress Heart: Regular rate Lungs: Clear, Crackles, Other Abdomen: Normal bowel sounds, Soft, No tenderness Extremities: No cyanosis Skin: No breakdown Labs Labs: Laboratory Tests Test 06/23/21 05:00 White Blood Count 5.1 x10^3/uL (4.0-11.0) Red Blood Count 2.31 x10^6/uL (3.50-5.40) Hemoglobin 8.0 g/dL (12.0-15.5) Hematocrit 23.5 % (36.0-47.0) Mean Corpuscular Volume 102 fL (79-100) Mean Corpuscular Hemoglobin 35 pg (25-35) Mean Corpuscular Hemoglobin Concent 34 g/dL (31-37) Red Cell Distribution Width 15.7 % (11.5-14.5) Platelet Count 133 x10^3/uL (140-400) Sodium Level 139 mmol/L (136-145) Potassium Level 4.5 mmol/L (3.5-5.1) Chloride Level 101 mmol/L (98-107) Carbon Dioxide Level 29 mmol/L (21-32) Anion Gap 9 (6-14) Blood Urea Nitrogen 46 mg/dL (7-20) Creatinine 8.6 mg/dL (0.6-1.0) Estimated GFR (Cockcroft-Gault) 5.6 Glucose Level 83 mg/dL (70-99) Calcium Level 8.3 mg/dL (8.5-10.1) Phenytoin (Dilantin) Level 5.0 mcg/mL (10.0-20.0) Phenytoin Last Dose Date 06/22/21 Phenytoin Last Dose Time 2100 Review of Systems Review of Systems: patel vasques get up well, no n../v/d no fver or chills, Comment Review of Relevant I have reviewed the following items rohini (where applicable) has been applied. Medications: Current Medications Medications (Trade) Dose Ordered Sig/Sg Route PRN Reason Start Time Stop Time Status Last Admin Dose Admin Amlodipine Besylate (Norvasc) 5 mg DAILY PO 06/22/21 12:00 06/22/21 12:23 Apixaban (Eliquis) 5 mg BID PO 06/22/21 12:00 06/22/21 20:57 Atorvastatin Calcium (Lipitor) 40 mg QHS PO 06/22/21 21:00 06/22/21 20:57 Diclofenac Sodium (Voltaren) 1 blaine QID TP 06/22/21 13:00 06/22/21 20:57 Metoprolol Succinate (Toprol Xl) 12.5 mg DAILY PO 06/22/21 12:00 06/22/21 12:23 Phenytoin Sodium (Dilantin) 30 mg QHS PO 06/22/21 21:00 06/22/21 20:57 Zonisamide (Zonegran) 300 mg DAILY PO 06/22/21 12:00 06/22/21 12:22 Phenytoin Sodium (Dilantin) 200 mg QHS PO 06/22/21 21:00 06/22/21 20:57 Justifications for Admission Other Justification ANTIONE ROWAN MD Jun 23, 2021 11:50
--- NOTE | 2021-06-23 12:25 | RAD ---
EXAM: CT Head without IV contrast CLINICAL HISTORY: Reason: F/U fall, has right facial droop pt. in dialysis 09:15 COMPARISON: 12/21/2019 TECHNIQUE: Routine CT of the head without contrast. PQRS compliance statement - One or more of the following individualized dose reduction techniques wer e utilized for this study: 1. Automated exposure control 2. Adjustment of the mA and/or kV according to patient size 3. Use of iterative reconstruction technique FINDINGS: There is no evidence of hemorrhage, mass or extra-axial fluid collection. Duvall-white differentiation is maintained with no evidence of edema. Subcortical, periventricular as w ell as deep white matter foci of hypoattenuation likely changes of chronic small vessel disease. There is no mass effect or shift of the intracranial structures. The ventricles, basilar cisterns and cortical sulci are normal in size and configuration for the shona ents stated age. The cerebellum and brainstem are unremarkable. Diffuse sclerosis and thickening of the calvarium, of uncertain clinical significance or etiology, st able to 12/21/2019. Otherwise, calvarium demonstrates no evidence of fracture or focal lesion. There is normal aeration of the visualized paranasal sinuses and mastoid air cells. The visualized portions of the orbits are normal. Atherosclerotic calcifications of the intracranial internal carotid and vertebral arteries is seen. IMPRESSION: 1. No evidence for acute intracranial process. 2. White matter changes, likely chronic small vessel disease. Electronically signed by: Prashant Waddell MD (06/23/2021 12:23 PM) [facility]
--- NOTE | 2021-06-23 14:46 | NUR ---
SS following up with discharge planning. SS reviewed pt chart and discussed with pt RN. Pt is currently on room air. Pt has outpatient hemodialysis at [facility], ; fax [phone], Saturday, Saturday, and Saturday. PT/OT ordered. SS will continue to follow for discharge planning.
[2021-06-23 15:00] VITALS: BP 137/58
[2021-06-23 19:00] VITALS: BP 108/53
--- NOTE | 2021-06-23 20:05 | NUR ---
Assessment completed vss poc explained pt c/o discomfort across her shoulders and arms, pt reoriented to surroundings bed alarm set will resume care and continue to monitor pt.Call light in reach.
[2021-06-23] MEDS: PHENYTOIN SODIUM EXTENDED 100 MG CAPSULE PO SCH (20:34)
[2021-06-23] MEDS: ATORVASTATIN CALCIUM 40 MG TABLET. PO SCH (20:34)
[2021-06-23] MEDS: PHENYTOIN SODIUM EXTENDED 30 MG CAPSULE. PO SCH (20:34)
[2021-06-23] MEDS ORDERED: EPOETIN ALFA-EPBX for ESRD 20,000 UNIT/ML VIAL. SQ SCH (21:00)
[2021-06-23 23:00] VITALS: BP 123/56
[2021-06-24 03:45] VITALS: BP 149/68
[2021-06-24 07:00] VITALS: BP 147/63
[2021-06-24] MEDS: APIXABAN 5 MG TABLET. PO SCH ×2 (08:58→21:59)
[2021-06-24] MEDS: FLUTICASONE 50MCG/NASAL SPRAY 16GM BOTTLE. NS SCH (08:58)
[2021-06-24] MEDS: DICLOFENAC SODIUM 1% TOPICAL GEL 100GM TUBE. TP SCH ×4 (08:59→21:59)
[2021-06-24] MEDS: ZONISAMIDE 100 MG CAPSULE. PO SCH (08:59)
[2021-06-24] MEDS: METOPROLOL SUCC 24HR ER 25 MG TAB.ER.24H. PO SCH (09:00)
[2021-06-24 11:00] VITALS: BP 127/50
--- NOTE | 2021-06-24 13:00 | PDOC ---
[facility] [facility] PROGRESS NOTE Date of Service DOS: DATE: 06/24/21 TIME: 12:59 Chief Complaint Chief Complaint syncope, vagal episode History of epilepsy on phenytoin and lamotrigine, follows with Neuro at End-stage renal disease, on dialysis chronic distolic CHF, HTN Hx leukemia, NOS arm weakness, poss rita paralysis History of Present Illness History of Present Illness med problems, better stable still arm weakness, but stonger than yesterday, may needs SKILLED placement Prior stroke has no residual, to repeat CT head today, neuro following cont PT and OT, Vitals/I&O Vitals/I&O: Vital Signs Date Time Temp Pulse Resp B/P (MAP) Pulse Ox O2 Delivery O2 Flow Rate FiO2 06/24/21 11:00 98.0 79 20 127/50 (75) 97 Room Air 98.0 I & O 06/23/21 06/23/21 06/24/21 15:00 23:00 07:00 Intake Total 50 ml 50 ml 100 ml Output Total 100 ml Balance 50 ml -50 ml 100 ml Physical Exam General: Alert, Oriented X3, Cooperative, No acute distress Heart: Regular rate Lungs: Clear, Crackles, Other Abdomen: Normal bowel sounds, Soft, No tenderness Extremities: No cyanosis Skin: No breakdown Review of Systems Review of Systems: no nv.d. right arm weakness lethargy Comment Review of Relevant I have reviewed the following items rohini (where applicable) has been applied. Medications: Current Medications Medications (Trade) Dose Ordered Sig/Sg Route PRN Reason Start Time Stop Time Status Last Admin Dose Admin Epoetin Asim-epbx (RETACRIT for ESRD PTS) 10,000 unit [id number]@[id number] SQ 06/23/21 21:00 06/23/21 20:35 Justifications for Admission Other Justification ANTIONE ROWAN MD Jun 24, 2021 13:00
[2021-06-24 14:46] VITALS: BP 138/59
[2021-06-24 19:44] VITALS: BP 134/65
[2021-06-24] MEDS: PHENYTOIN SODIUM EXTENDED 100 MG CAPSULE PO SCH (21:59)
[2021-06-24] MEDS: ATORVASTATIN CALCIUM 40 MG TABLET. PO SCH (21:59)
[2021-06-24] MEDS: PHENYTOIN SODIUM EXTENDED 30 MG CAPSULE. PO SCH (21:59)
[2021-06-24 22:31] VITALS: BP 141/62
[2021-06-25 03:01] VITALS: BP 147/71
[2021-06-25 06:13] VITALS: BP 138/72
[2021-06-25] MEDS: ZONISAMIDE 100 MG CAPSULE. PO SCH (08:06)
[2021-06-25] MEDS: METOPROLOL SUCC 24HR ER 25 MG TAB.ER.24H. PO SCH (08:06)
[2021-06-25] MEDS: FLUTICASONE 50MCG/NASAL SPRAY 16GM BOTTLE. NS SCH (08:06)
[2021-06-25] MEDS: APIXABAN 5 MG TABLET. PO SCH ×2 (08:06→20:43)
[2021-06-25] MEDS: DICLOFENAC SODIUM 1% TOPICAL GEL 100GM TUBE. TP SCH ×4 (08:07→20:42)
[2021-06-25 11:00] VITALS: BP 128/60
[2021-06-25] MEDS ORDERED: MAGNESIUM SULFATE 2GM 50 ML IV PRN (12:45)
--- NOTE | 2021-06-25 14:37 | PDOC ---
[facility] [facility] PROGRESS NOTE Date of Service DOS: DATE: 06/25/21 TIME: 14:36 Chief Complaint Chief Complaint syncope, vagal episode History of epilepsy on phenytoin and lamotrigine, follows with Neuro at End-stage renal disease, on dialysis chronic distolic CHF, HTN Hx leukemia, NOS arm weakness, poss rita paralysis History of Present Illness History of Present Illness 06/25, she reports TOO weak to DC, try PT again, plan skilled med problems, better stable still arm weakness, but stonger than yesterday, Prior stroke has no residual, to repeat CT head today, neuro following cont PT and OT, Vitals/I&O Vitals/I&O: Vital Signs Date Time Temp Pulse Resp B/P (MAP) Pulse Ox O2 Delivery O2 Flow Rate FiO2 06/25/21 09:00 76 138/72 06/25/21 08:00 Room Air 06/25/21 06:13 98.7 16 98 98.7 I & O 06/24/21 06/24/21 06/25/21 15:00 23:00 07:00 Intake Total 200 ml 420 ml Output Total 0 ml Balance 200 ml 420 ml Physical Exam General: Alert, Oriented X3, Cooperative, No acute distress Heart: Regular rate Lungs: Clear, Crackles, Other Abdomen: Normal bowel sounds, Soft, No tenderness Extremities: No cyanosis Skin: No breakdown Review of Systems Review of Systems: no n.v.d Comment Review of Relevant I have reviewed the following items rohini (where applicable) has been applied. Justifications for Admission Other Justification ANTIONE ROWAN MD Jun 25, 2021 14:37
[2021-06-25 15:00] VITALS: BP 133/60
[2021-06-25 19:06] VITALS: BP 147/71
--- NOTE | 2021-06-25 19:12 | NUR ---
Pt in bed assessment completed vss poc explained pt denied pain but c/o hand aching call light in reach bed alarm set will resume care and continue to monitor pt
[2021-06-25] MEDS: ATORVASTATIN CALCIUM 40 MG TABLET. PO SCH (20:42)
[2021-06-25] MEDS: PHENYTOIN SODIUM EXTENDED 100 MG CAPSULE PO SCH (20:42)
[2021-06-25] MEDS: PHENYTOIN SODIUM EXTENDED 30 MG CAPSULE. PO SCH (20:43)
[2021-06-25 22:21] VITALS: BP 145/69
[2021-06-26 03:00] VITALS: BP 163/72
[2021-06-26 04:57] LABS: ALBUMIN 2.4 g/dL (3.4-5.0); CALCIUM 8.6 mg/dL (8.5-10.1); GFR 5.4; PHOSPHORUS 3.2 mg/dL (2.6-4.7); POTASSIUM 4.8 mmol/L (3.5-5.1)
[2021-06-26 07:00] VITALS: BP 160/76
[2021-06-26] MEDS ORDERED: DIALYSIS PATIENT. MC PRN (08:30)
[2021-06-26] MEDS ORDERED: IV NORMAL SALINE 1000ML BAG 1,000 ML IV PRN ×2 (08:30)
[2021-06-26] MEDS: FLUTICASONE 50MCG/NASAL SPRAY 16GM BOTTLE. NS SCH (09:00)
[2021-06-26] MEDS: METOPROLOL SUCC 24HR ER 25 MG TAB.ER.24H. PO SCH (09:14)
[2021-06-26] MEDS: DICLOFENAC SODIUM 1% TOPICAL GEL 100GM TUBE. TP SCH ×2 (09:14→14:40)
--- NOTE | 2021-06-26 09:26 | PDOC ---
DATE OF SERVICE DATE: 06/26/21 TIME: 09:26 SUBJECTIVE ROS No complaints , seen during dialysis OBJECTIVE Vital Signs Vital Signs Date Time Temp Pulse Resp B/P (MAP) Pulse Ox O2 Delivery O2 Flow Rate FiO2 06/26/21 09:14 75 160/76 06/26/21 07:00 97.8 18 100 Room Air 97.8 I & 0 Intake and Output 06/26/21 07:00 Intake Total 740 ml Output Total 1 ml Balance 739 ml Intake Oral 740 ml Stool Total 1 ml PHYSICAL EXAM Physical Exam GENERAL: No apparent distress. HEENT: OM moist NECK: Supple LUNGS: Clear to auscultation HEART: RRR, S1, S2 present. ABDOMEN: Soft, nontender. EXTREMITIES: Without any cyanosis, clubbing, or edema. Rt AV access - buttons/sutures + after a recent procedure NEUROLOGIC: confused and does not answer questions. SKIN: No ulcerations or rashes, No Kingsley , No SP or CVA tenderness EXT No edema DIAGNOSIS/ASSESSMENT Assessment & Plan ESRD -on HD MWF, seen during treatment , tolerating well. Continue as ordered, Black Bauman Anemia- Continue ANIL HTN- antihypertensives , UF to Dry weight Syncope fall, head injury Hx of CHF - compensated Hx of Leukemia Hx of Seizures- Intractable left temporal lobe epilepsy, currently on zonisamide and phenytoin, followed at [facility] COMMENT/RELEVANT DATA Meds Current Medications Medications (Trade) Dose Ordered Sig/Sg Start Time Stop Time Status Last Admin Dose Admin Albuterol Sulfate (Ventolin Neb Soln) 2.5 mg PRN Q4HRS PRN 06/22/21 08:30 Cancel Amlodipine Besylate (Norvasc) 5 mg DAILY 06/22/21 12:00 06/26/21 09:14 5 MG Apixaban (Eliquis) 5 mg BID 06/22/21 12:00 06/25/21 20:43 5 MG Aspirin (Ecotrin) 81 mg DAILY 06/22/21 09:00 Cancel Atorvastatin Calcium (Lipitor) 40 mg QHS 06/22/21 21:00 06/25/21 20:42 40 MG Calcium Carbonate/ Glycine (Tums) 500 mg BID 06/22/21 09:00 Cancel Cinacalcet (Sensipar) 60 mg DAILY 06/22/21 09:00 Cancel Clonazepam (KlonoPIN) 0.5 mg PRN BID PRN 06/22/21 11:45 Diclofenac Sodium (Voltaren) 1 blaine QID 06/22/21 13:00 06/26/21 09:14 1 BLAINE Epoetin Asim-epbx (RETACRIT for ESRD PTS) 10,000 unit MoWeFr@2100 06/23/21 21:00 06/23/21 20:35 10,000 UNIT Fluticasone Propionate (Flonase) 2 spray DAILY 06/23/21 09:00 06/25/21 08:06 2 SPRAY Haloperidol (Haldol) 2 mg BID 06/22/21 09:00 Cancel Info (PHARMACY MONITORING -- do not chart) 1 each PRN DAILY PRN 06/26/21 08:30 Lamotrigine (LaMICtal) 300 mg BID 06/22/21 09:00 UNV Magnesium Sulfate 50 ml @ 25 mls/hr PRN DAILY PRN 06/25/21 12:45 Metoprolol Succinate (Toprol Xl) 12.5 mg DAILY 06/22/21 12:00 06/26/21 09:14 12.5 MG Nitroglycerin (Nitrostat) 0.4 mg PRN Q5MIN PRN 06/22/21 11:45 Phenytoin Sodium (Dilantin) 200 mg QHS 06/22/21 21:00 06/25/21 20:42 200 MG Sevelamer Carbonate (Renvela) 2,400 mg TIDWMEALS 06/22/21 09:00 Cancel Sodium Chloride 1,000 ml @ 400 mls/hr Q2H30M PRN 06/26/21 08:30 06/26/21 20:29 Sodium Chloride (Normal Saline Flush) 3 ml PRN DAILY PRN 06/22/21 01:00 Zonisamide (Zonegran) 300 mg DAILY 06/22/21 12:00 06/25/21 08:06 300 MG Lab Laboratory Tests Test 06/26/21 04:00 Hemoglobin 8.1 g/dL (12.0-15.5) Sodium Level 141 mmol/L (136-145) Potassium Level 4.8 mmol/L (3.5-5.1) Chloride Level 102 mmol/L (98-107) Carbon Dioxide Level 28 mmol/L (21-32) Anion Gap 11 (6-14) Blood Urea Nitrogen 71 mg/dL (7-20) Creatinine 9.0 mg/dL (0.6-1.0) Estimated GFR (Cockcroft-Gault) 5.4 Glucose Level 86 mg/dL (70-99) Calcium Level 8.6 mg/dL (8.5-10.1) Phosphorus Level 3.2 mg/dL (2.6-4.7) Magnesium Level 2.2 mg/dL (1.8-2.4) Albumin 2.4 g/dL (3.4-5.0) Results All relevant outside records, renal labs, imaging studies, telemetry/EKG's were reviewed. Justicifation of Admission Dx: Justifications for Admission: Justification of Admission Dx: N/A CARLOS CASEY MD Jun 26, 2021 09:26
--- NOTE | 2021-06-26 10:49 | PDOC ---
PROGRESS NOTES Date of Service DATE: 06/26/21 TIME: 10:45 Assessment Syncope, fall, head injury Prior stroke although I do not find a focal exam last time I saw her in 2019. Now has a nonfocal exam, perhaps the right weakness I was seeing 06/22 was a Wilfrido's paralysis or just swelling from the head injury. Second head CT negative Intractable left temporal lobe epilepsy, currently on zonisamide and phenytoin, followed at Subtherapeutic phenytoin level, had missed the dose the night of admission Peripheral neuropathy Feels too weak to go straight home Plan Current anticonvulsants Okay for discharge, likely needs fci unit Repeat phenytoin level tomorrow Follow-up with neurology Subjective No complaints Objective Vital Signs Date Time Temp Pulse Resp B/P (MAP) Pulse Ox O2 Delivery O2 Flow Rate FiO2 06/26/21 09:14 75 160/76 06/26/21 07:00 97.8 18 100 Room Air 97.8 Intake and Output 06/26/21 07:00 Intake Total 740 ml Output Total 1 ml Balance 739 ml Intake Oral 740 ml Stool Total 1 ml PHYSICAL EXAM Alert. Oriented to place and person, not date. PERRL. EOMI. CN: no focal findings. No longer has the right facial palsy Muscle tone: normal. Muscle strength: 4/5 DTR: 1+ Plantar reflex: Flexor Gait: not examined in bed. Sensory exam: Stocking loss. No cerebellar signs elicited. Review of Relevant I have reviewed the following items rohini (where applicable) has been applied. Labs Laboratory Tests Test 06/26/21 04:00 Hemoglobin 8.1 g/dL (12.0-15.5) Sodium Level 141 mmol/L (136-145) Potassium Level 4.8 mmol/L (3.5-5.1) Chloride Level 102 mmol/L (98-107) Carbon Dioxide Level 28 mmol/L (21-32) Anion Gap 11 (6-14) Blood Urea Nitrogen 71 mg/dL (7-20) Creatinine 9.0 mg/dL (0.6-1.0) Estimated GFR (Cockcroft-Gault) 5.4 Glucose Level 86 mg/dL (70-99) Calcium Level 8.6 mg/dL (8.5-10.1) Phosphorus Level 3.2 mg/dL (2.6-4.7) Magnesium Level 2.2 mg/dL (1.8-2.4) Albumin 2.4 g/dL (3.4-5.0) Laboratory Tests Test 06/26/21 04:00 Hemoglobin 8.1 g/dL (12.0-15.5) Sodium Level 141 mmol/L (136-145) Potassium Level 4.8 mmol/L (3.5-5.1) Chloride Level 102 mmol/L (98-107) Carbon Dioxide Level 28 mmol/L (21-32) Anion Gap 11 (6-14) Blood Urea Nitrogen 71 mg/dL (7-20) Creatinine 9.0 mg/dL (0.6-1.0) Estimated GFR (Cockcroft-Gault) 5.4 Glucose Level 86 mg/dL (70-99) Calcium Level 8.6 mg/dL (8.5-10.1) Phosphorus Level 3.2 mg/dL (2.6-4.7) Magnesium Level 2.2 mg/dL (1.8-2.4) Albumin 2.4 g/dL (3.4-5.0) Medications Current Medications Sodium Chloride (Normal Saline Flush) 3 ml PRN DAILY PRN IV AFTER MEDS AND BLOOD DRAWS; Start 06/22/21 at 01:00 Albuterol Sulfate (Ventolin Neb Soln) 2.5 mg PRN Q4HRS PRN INH SHORTNESS OF BREATH; Start 06/22/21 at 08:30; Status Cancel Amlodipine Besylate (Norvasc) 5 mg DAILY PO ; Start 06/22/21 at 09:00; Status Cancel Aspirin (Ecotrin) 81 mg DAILY PO ; Start 06/22/21 at 09:00; Status Cancel Calcium Carbonate/ Glycine (Tums) 500 mg BID PO ; Start 06/22/21 at 09:00; Status Cancel Cinacalcet (Sensipar) 60 mg DAILY PO ; Start 06/22/21 at 09:00; Status Cancel Haloperidol (Haldol) 2 mg BID PO ; Start 06/22/21 at 09:00; Status Cancel Lamotrigine (LaMICtal) 300 mg BID PO ; Start 06/22/21 at 09:00; Status UNV Sevelamer Carbonate (Renvela) 2,400 mg TIDWMEALS PO ; Start 06/22/21 at 09:00; Status Cancel Phenytoin Sodium (Dilantin) 500 mg QHS PO ; Start 06/22/21 at 21:00; Status Cancel Amlodipine Besylate (Norvasc) 5 mg DAILY PO Last administered on 06/26/21at 09:14; Start 06/22/21 at 12:00 Apixaban (Eliquis) 5 mg BID PO Last administered on 06/25/21at 20:43; Start 06/22/21 at 12:00 Atorvastatin Calcium (Lipitor) 40 mg QHS PO Last administered on 06/25/21at 20:42; Start 06/22/21 at 21:00 Clonazepam (KlonoPIN) 0.5 mg PRN BID PRN PO ANXIETY / AGITATION; Start 06/22/21 at 11:45 Diclofenac Sodium (Voltaren) 1 blaine QID TP Last administered on 06/26/21at 09:14; Start 06/22/21 at 13:00 Fluticasone Propionate (Flonase) 2 spray DAILY NS Last administered on 06/25/21at 08:06; Start 06/23/21 at 09:00 Metoprolol Succinate (Toprol Xl) 12.5 mg DAILY PO Last administered on at 09:14; Start 06/22/21 at 12:00 Nitroglycerin (Nitrostat) 0.4 mg PRN Q5MIN PRN SL CHEST PAIN; Start 06/22/21 at 11:45 Phenytoin Sodium (Dilantin) 30 mg QHS PO Last administered on 06/25/21at 20:43; Start 06/22/21 at 21:00 Zonisamide (Zonegran) 300 mg DAILY PO Last administered on 06/25/21at 08:06; Start 06/22/21 at 12:00 Phenytoin Sodium (Dilantin) 200 mg QHS PO Last administered on 06/25/21at 20:42; Start 06/22/21 at 21:00 Sodium Chloride 1,000 ml @ 1,000 mls/hr Q1H PRN IV hypotension; Start 06/23/21 at 06:15; Stop 06/23/21 at 12:14; Status DC Sodium Chloride 1,000 ml @ 400 mls/hr Q2H30M PRN IV PATENCY; Start 06/23/21 at 06:15; Stop 06/23/21 at 18:14; Status DC Info (PHARMACY MONITORING -- do not chart) 1 each PRN DAILY PRN MC SEE Marco Antonio BERNABE; Start 06/23/21 at 06:15; Status Cancel Epoetin Asim-epbx (RETACRIT for ESRD PTS) 10,000 unit MoWeFr@2100 SQ Last adm inistered on 06/23/21at 20:35; Start 06/23/21 at 21:00 Magnesium Sulfate 50 ml @ 25 mls/hr PRN DAILY PRN IV for Mag < 1.7 on am labs; Start 06/25/21 at 12:45 Sodium Chloride 1,000 ml @ 1,000 mls/hr Q1H PRN IV hypotension; Start 06/26/21 at 08:30; Stop 06/26/21 at 14:29 Sodium Chloride 1,000 ml @ 400 mls/hr Q2H30M PRN IV PATENCY; Start 06/26/21 at 08:30; Stop 06/26/21 at 20:29 Info (PHARMACY MONITORING -- do not chart) 1 each PRN DAILY PRN MC SEE COMMENTS; Start 06/26/21 at 08:30 Active Scripts Active Reported Zonisamide 100 Mg Capsule 300 Cap PO DAILY Metoprolol Succinate ( Xl ) (Metoprolol Succinate) 25 Mg Tab.er.24h 12.5 Mg PO DAILY Atorvastatin Calcium 40 Mg Tablet 40 Mg PO QHS Fluticasone Propionate Nasal Julian (Fluticasone Propionate) 16 Gm Julian.susp 2 Sprays NS DAILY Diclofenac Sodium 100 Gm Gel..gram. 1 Blaine TP QID Amlodipine Besylate 5 Mg Tablet 5 Mg PO DAILY Clonazepam 0.5 Mg Tablet 0.5 Mg PO PRN BID PRN Nitrostat (Nitroglycerin) 0.4 Mg Tab.subl 0.4 Mg SL PRN Q5MIN PRN Phenytoin Sodium Extended 200 Mg Capsule 200 Mg PO QHS Dilantin (Phenytoin Sodium Extended) 30 Mg Capsule 30 Mg PO QHS Eliquis (Apixaban) 5 Mg Tablet 1 Tab PO BID Aspir 81 (Aspirin) 81 Mg Tablet.dr 81 Mg PO DAILY NEXT DOSE: 04/21/15 AM Vitals/I & O Vital Sign - Last 24 Hours 06/25/21 06/25/21 06/25/21 06/25/21 11:00 15:00 19:06 19:12 Temp 98.6 98.5 98.4 98.6 98.5 98.4 Pulse 71 74 81 Resp 18 18 16 B/P (MAP) 128/60 (82) 133/60 (84) 147/71 (96) Pulse Ox 97 100 100 O2 Delivery Room Air Room Air Room Air Room Air 06/25/21 06/26/21 06/26/21 06/26/21 22:21 03:00 07:00 09:14 Temp 98.4 98.2 97.8 98.4 98.2 97.8 Pulse 84 88 75 75 Resp 18 16 18 B/P (MAP) 145/69 (94) 163/72 (102) 160/76 (104) 160/76 Pulse Ox 100 100 100 O2 Delivery Room Air Room Air Room Air 06/26/21 09:14 Pulse 75 B/P (MAP) 160/76 Intake and Output 06/25/21 06/25/21 06/26/21 15:00 23:00 07:00 Intake Total 360 ml 280 ml 100 ml Output Total 1 ml Balance 359 ml 280 ml [address] Head without IV contrast, 06/23/2021 12:23 PM There is no evidence of hemorrhage, mass or extra-axial fluid collection. Duvall-white differentiation is maintained with no evidence of edema. Subcortical, periventricular as well as deep white matter foci of hypoattenuation likely changes of chronic small vessel disease. There is no mass effect or shift of the intracranial structures. The ventricles, basilar cisterns and cortical sulci are normal in size and configuration for the patients stated age. The cerebellum and brainstem are unremarkable. Diffuse sclerosis and thickening of the calvarium, of uncertain clinical significance or etiology, stable to 12/21/2019. Otherwise, calvarium demonstrates no evidence of fracture or focal lesion. There is normal aeration of the visualized paranasal sinuses and mastoid air cells. The visualized portions of the orbits are normal. Atherosclerotic calcifications of the intracranial internal carotid and vertebral arteries is seen. IMPRESSION: 1. No evidence for acute intracranial process. 2. White matter changes, likely chronic small vessel disease. Justicifation of Admission Dx: Justifications for Admission: Justification of Admission Dx: N/A YISEL GILLESPIE MD Jun 26, 2021 10:49
--- NOTE | 2021-06-26 12:58 | SNU/HH DC ---
DISCHARGE WITH HOME HEALTH DISCHARGE INFORMATION: Condition on Discharge: Stable CODE STATUS: Code Status: Full HOME HEALTH: Face to Face: I certify this patient is under my care and that I, or a nurse practitioner or physician's optometry assistant working with me, had a face to face encounter that meets the physician face to face encounter requirements with this patient on []. Medical Complications: Other (debility/decline going to senior living) Detention For: Assess Cardiopulm Status RN For Eval/Treatment: Yes Physical Therapy For: Evalulation/Treatment Occupational Therapy For: Evaluation/Treatment Home Health Aide For: Self-care RESTAURANT ASSISTANT For: Community Resources Pt Meets Homebound Status: Poor coordination w/ amb. POST DISCHARGE ORDERS: Activity Instructions for Disc: Activity as tolerated Weight Bearing Status after Di: As tolerated DIET AFTER DISCHARGE: Renal Wound/Incision Care: No wound care needed TREATMENT/EQUIPMENT ORDERS: Adaptive Equipment Issued: None CERTIFICATION STATEMENT: Certification Statement: Certification Statement: Based on the above finding, I certify that this patient is confined to the home and needs intermittent senior living care, physical therapy and/or speech therapy, or continues to need occupational therapy.~ This patient is under my care, and I have initiated the establishment of the plan of care.~ This patient will be followed by myself or a community physician who will periodically review the plan of care. Home Meds Reported Medications Zonisamide (ZONISAMIDE) 100 Mg Capsule, 300 CAP PO DAILY 06/22/21 Metoprolol Succinate (METOPROLOL SUCCINATE ( XL )) 25 Mg Tab.er.24h, 12.5 MG PO DAILY 06/22/21 Atorvastatin Calcium (ATORVASTATIN CALCIUM) 40 Mg Tablet, 40 MG PO QHS 06/22/21 Fluticasone Propionate (FLUTICASONE PROPIONATE NASAL SPRAY) 16 Gm [place].susp, 2 SPRAYS NS DAILY 06/22/21 Diclofenac Sodium (Diclofenac Sodium) 100 Gm Gel..gram., 1 ILIR TP QID 06/22/21 Amlodipine Besylate (AMLODIPINE BESYLATE) 5 Mg Tablet, 5 MG PO DAILY 06/22/21 Clonazepam (Clonazepam) 0.5 Mg Tablet, 0.5 MG PO PRN BID PRN for ANXIETY / AGITATION 06/22/21 Nitroglycerin (Nitrostat) 0.4 Mg Tab.subl, 0.4 MG SL PRN Q5MIN PRN for CHEST P AIN 06/22/21 Phenytoin Sodium Extended (PHENYTOIN SODIUM EXTENDED) 200 Mg Capsule, 200 MG PO QHS 06/22/21 Phenytoin Sodium Extended (DILANTIN) 30 Mg Capsule, 30 MG PO QHS 06/22/21 Apixaban (ELIQUIS) 5 Mg Tablet, 1 TAB PO BID 06/22/21 Aspirin (ASPIR 81) 81 Mg Tablet.dr, 81 MG PO DAILY NEXT DOSE: 04/21/15 AM 10/15/13 Discontinued Reported Medications Amlodipine Besylate (AMLODIPINE BESYLATE) 10 Mg Tablet, 10 MG PO DAILY 10/30/17 Imatinib Mesylate (Gleevec) 400 Mg Tablet, 400 MG PO DAILY 10/30/17 Calcium Carbonate (TUMS) 200 Mg Tab.chew, 200 MG PO, TAB.CHEW 03/10/16 Cinacalcet Hcl (SENSIPAR) 30 Mg Tablet, 2 TAB PO DAILY, #30 TAB 11 Refills 03/10/16 Sevelamer Carbonate (RENVELA) 800 Mg Tablet, 3 TAB PO TID, #810 TAB 3 Refills 03/10/16 Albuterol Sulfate (ALBUTEROL SULFATE NEB SOLN) 2.5 Mg/3 Ml Vial.neb, 2.5 MG IH Q4HRS PRN for SHORTNESS OF BREATH 12/24/13 Phenytoin Sodium Extended (PHENYTEK) 300 Mg Capsule, 500 MG PO QHS NEXT DOSE: 04/20/15 PM 10/15/13 Discontinued Scripts Haloperidol (HALOPERIDOL) 2 Mg Tablet, 1 TAB PO BID for aggitation for 30 Days, #60 TAB Prov:ZHEN ESTEBAN MD 12/24/19 Lamotrigine (LAMICTAL) 100 Mg Tablet, 300 MG PO BID, #60 Prov:ANTIONE ROWAN MD 04/20/15 TUSHAR GLASS III DO Jun 26, 2021 12:58
--- NOTE | 2021-06-26 13:53 | NUR ---
SW following. Discussed with Guerda JAIN), chart reviewed. Plan for pt to discharge home with [facility]. ALANNA spoke with [facility], they have accepted this pt before, but were unable to reach the patient once home. Nina happy to speak with pt again. Discharge order for home with pending sale to [facility]. Addendum: 06/26/21 at 1608 by AIDA MONDRAGON Pt accepted with [facility]. Transportation arranged for pt with [facility] between [id number]. RN notified. No further SW needs.
[2021-06-26 14:12] VITALS: BP 120/64
[2021-06-26] MEDS: APIXABAN 5 MG TABLET. PO SCH (14:39)
[2021-06-26] MEDS: ZONISAMIDE 100 MG CAPSULE. PO SCH (14:39)
--- NOTE | 2021-06-26 17:18 | DS ---
DATE OF DISCHARGE: 06/26/2021 ADMISSION DIAGNOSIS: Syncope. DISCHARGE DIAGNOSES: Resolving syncope; history of end-stage renal disease, on dialysis; neuropathy; history of seizure disorder; resolving subtherapeutic phenytoin level. CONSULTS: Neurology and Nephrology. PROCEDURE: Dialysis. HOSPITAL COURSE: The patient is a pleasant, middle-aged female who has multiple comorbidities, presented with a syncopal episode. She was admitted. The above consults were obtained. We adjusted her meds, got her dialyzed. Today, I saw and examined her. She is doing well. She is refusing to go to senior living, but clinically looks stronger. She can probably go home with senior living. We plan to discharge after dialysis. DISPOSITION: Home. ACTIVITY: As tolerated. DIET: Renal. DISCHARGE MEDICATIONS: Please see the MRAD. Other medications, was put on amlodipine 5 a day, Eliquis 5 b.i.d., aspirin 81 a day, atorvastatin 40 a day, clonazepam 0.5 b.i.d. p.r.n., diclofenac p.r.n., Flonase, metoprolol 25 q. day, p.r.n. nitro, phenytoin 230 mg p.o. at bedtime and zonisamide 300 daily. TOTAL TIME: [address]: BLANCA/steffi TID: [id number]
== END 2021-06-26 18:00 | disposition home health service (06) | DRG 312 ==
LOC: 6 SOUTH 23:30
PROVIDERS: ADMIT Internal Medicine; ATTEND Internal Medicine
PROC: 5A1D70Z Performance of Urinary Filtration, Intermittent, Less than 6 Hours Per Day (ICD-10-PCS; principal; 2021-06-26)
DX: R55 Syncope and collapse (principal); N18.6 End stage renal disease; I13.2 Hypertensive heart and chronic kidney disease with heart failure and with stage 5 chronic kidney disease, or end stage renal disease; N25.81 Secondary hyperparathyroidism of renal origin; E78.5 Hyperlipidemia, unspecified; G40.909 Epilepsy, unspecified, not intractable, without status epilepticus; G62.9 Polyneuropathy, unspecified; I25.10 Atherosclerotic heart disease of native coronary artery without angina pectoris; I50.9 Heart failure, unspecified; J44.9 Chronic obstructive pulmonary disease, unspecified; E21.3 Hyperparathyroidism, unspecified; E55.9 Vitamin D deficiency, unspecified; H40.9 Unspecified glaucoma; M19.90 Unspecified osteoarthritis, unspecified site; R77.8 Other specified abnormalities of plasma proteins; M54.50 Low back pain, unspecified; R94.01 Abnormal electroencephalogram [EEG]; Z88.8 Allergy status to other drugs, medicaments and biological substances; Z87.01 Personal history of pneumonia (recurrent); Z98.49 Cataract extraction status, unspecified eye; Z85.6 Personal history of leukemia; Z86.73 Personal history of transient ischemic attack (TIA), and cerebral infarction without residual deficits; Z90.710 Acquired absence of both cervix and uterus; Z99.2 Dependence on renal dialysis
CPT/HCPCS: 36415; 70450; 80048; 80069; 80185; 83735; 85018; 85027; 97110-GP; 97116-GP; 97535-GO; G0378

== ENCOUNTER 2021-08-23 13:50 | Emergency (ER) | payer MEDICARE, OTHER ==
[~2021-08-23] VITALS: Ht 160 cm; Wt 71.3 kg
[~2021-08-23 13:50] MED LIST changes: +AMLO-186 PO; +APIX5TAB PO; +ATOR40TA59 PO; +CLON0.5T4 PO; +DICL100G28 TP; +FLUT16SP NS; +METO-239 PO; +NITR0.4T2 SL; +PHEN200C3 PO; +PHEN30CA PO; +ZONI100C26 PO
[2021-08-23 15:03] LABS: BASO % 0 % (0-3); EOS % 0 % (0-3); HEMATOCRIT 36.9 % (36.0-47.0); HEMOGLOBIN 12.4 g/dL (12.0-15.5); LYMPH # 0.7 x10^3/uL (1.0-4.8); LYMPH % 15 % (24-48); MEAN CORPUSCULAR HEMOGLOBIN 34 pg (25-35); MEAN CORPUSCULAR HGB CONC 34 g/dL (31-37); MEAN CORPUSCULAR VOLUME 100 fL (79-100); MONO # 0.5 x10^3/uL (0.0-1.1); MONO % 11 % (0-9); NEUT # 3.5 x10^3/uL (1.8-7.7); NEUT % 74 % (31-73); PLATELET COUNT 148 x10^3/uL (140-400); RED BLOOD COUNT 3.68 x10^6/uL (3.50-5.40); RED CELL DISTRIBUTION WIDTH 15.8 % (11.5-14.5); WHITE BLOOD COUNT 4.7 x10^3/uL (4.0-11.0)
[2021-08-23 15:09] LABS: ANION GAP 6 (6-14); BLOOD UREA NITROGEN 30 mg/dL (7-20); BUN/CREATININE RATIO 6 (6-20); CALCIUM 7.8 mg/dL (8.5-10.1); CARBON DIOXIDE 34 mmol/L (21-32); CHLORIDE 98 mmol/L (98-107); CREATININE 4.7 mg/dL (0.6-1.0); GFR 11.3; GLUCOSE 93 mg/dL (70-99); POTASSIUM 4.3 mmol/L (3.5-5.1); SODIUM 138 mmol/L (136-145)
[2021-08-23 15:14] LABS: ALBUMIN 2.9 g/dL (3.4-5.0); ALBUMIN/GLOBULIN RATIO 0.6 (1.0-1.7); ALK PHOS 397 U/L (46-116); ALT (SGPT) 51 U/L (14-59); AST (SGOT) 44 U/L (15-37); PHENY 5.5 mcg/mL (10.0-20.0); TOTAL BILIRUBIN 0.5 mg/dL (0.2-1.0)
[2021-08-23] MEDS ORDERED: PHENYTOIN SODIUM EXTENDED 100 MG CAPSULE PO ONE (16:30)
--- NOTE | 2021-08-23 16:59 | PHYS DOC ---
Past Medical History Past Medical History: Cancer, CHF, Hypertension, Renal Failure, Seizure, Other Additional Past Medical Histor: Leukemia Past Surgical History: Pacemaker Additional Past Surgical Histo: right dialysis fistula; left lumpectomy;[employer]ACEM[employer]ER Smoking Status: Never Smoker Alcohol Use: None Drug Use: None General Adult EDM: Chief Complaint: SEIZURE HPI: HPI: Patient is a 66-year-old female that presents today after having a seizure. Patient was finishing up her dialysis session and while they were removing her needles patient had approximately a 1 minute seizure that was witnessed by the staff at the dialysis center. Patient upon arrival to the emergency department was alert and orientated and able to answer all questions appropriately. She states that she has not missed any medications in the last couple of days, she says her last seizure prior to today was 3 or 4 weeks ago. Patient did not have loss of bowel or bladder control. Review of Systems: Review of Systems: Constitutional: Denies fever or chills. [] Eyes: Denies change in visual acuity. [] HENT: Denies nasal congestion or sore throat. [] Respiratory: Denies cough or shortness of breath. [] Cardiovascular: Denies chest pain or edema. [] GI: Denies abdominal pain, nausea, vomiting, bloody stools or diarrhea. [] : Denies dysuria. [] Musculoskeletal: Denies back pain or joint pain. [] Integument: Denies rash. [] Neurologic: Seizure Endocrine: Denies polyuria or polydipsia. [] Lymphatic: Denies swollen glands. [] Psychiatric: Denies depression or anxiety. [] Heart Score: C/O Chest Pain: N/A Risk Factors: Risk Factors: DM, Current or recent (<one month) smoker, HTN, HLP, family history of CAD, obesity. Risk Scores: Score 0 - 3: 2.5% MACE over next 6 weeks - Discharge Home Score 4 - 6: 20.3% MACE over next 6 weeks - Admit for Clinical Observation Score 7 - 10: 72.7% MACE over next 6 weeks - Early Invasive Strategies Current Medications: Current Medications Medications (Trade) Dose Ordered Sig/Sg Start Time Stop Time Status Last Admin Dose Admin Phenytoin Sodium (Dilantin) 500 mg 1X ONCE 08/23/21 16:30 08/23/21 16:31 DC Allergies: Allergies: Allergies Coded Allergies Type Severity Reaction Last Updated Verified acetaminophen Allergy Intermediate Swelling 08/23/21 Yes lisinopril Allergy Intermediate 08/23/21 Yes Physical Exam: PE: Constitutional: Well developed, well nourished, no acute distress, non-toxic appearance. [] HENT: Normocephalic, atraumatic, bilateral external ears normal, oropharynx moist, no oral exudates, nose normal. [] Eyes: PERRLA, EOMI, conjunctiva normal, no discharge. [] Neck: Normal range of motion, no tenderness, supple, no stridor. [] Cardiovascular:Heart rate regular rhythm, no murmur [] Lungs & Thorax: Bilateral breath sounds clear to auscultation [] Abdomen: Bowel sounds normal, soft, no tenderness, no masses, no pulsatile masses. [] Skin: Warm, dry, no erythema, no rash. [] Back: No tenderness, no CVA tenderness. [] Extremities: No tenderness, no cyanosis, no clubbing, ROM intact, no edema. [] Neurologic: Alert and oriented X 3, normal motor function, normal sensory function, no focal deficits noted. [] Psychologic: Affect normal, judgement normal, mood normal. [] Current Patient Data: Labs: Laboratory Tests Test 08/23/21 14:30 White Blood Count 4.7 x10^3/uL (4.0-11.0) Red Blood Count 3.68 x10^6/uL (3.50-5.40) Hemoglobin 12.4 g/dL (12.0-15.5) Hematocrit 36.9 % (36.0-47.0) Mean Corpuscular Volume 100 fL (79-100) Mean Corpuscular Hemoglobin 34 pg (25-35) Mean Corpuscular Hemoglobin Concent 34 g/dL (31-37) Red Cell Distribution Width 15.8 % (11.5-14.5) H Platelet Count 148 x10^3/uL (140-400) Neutrophils (%) (Auto) 74 % (31-73) H Lymphocytes (%) (Auto) 15 % (24-48) L Monocytes (%) (Auto) 11 % (0-9) H Eosinophils (%) (Auto) 0 % (0-3) Basophils (%) (Auto) 0 % (0-3) Neutrophils # (Auto) 3.5 x10^3/uL (1.8-7.7) Lymphocytes # (Auto) 0.7 x10^3/uL (1.0-4.8) L Monocytes # (Auto) 0.5 x10^3/uL (0.0-1.1) Eosinophils # (Auto) 0.0 x10^3/uL (0.0-0.7) Basophils # (Auto) 0.0 x10^3/uL (0.0-0.2) Sodium Level 138 mmol/L (136-145) Potassium Level 4.3 mmol/L (3.5-5.1) Chloride Level 98 mmol/L (98-107) Carbon Dioxide Level 34 mmol/L (21-32) H Anion Gap 6 (6-14) Blood Urea Nitrogen 30 mg/dL (7-20) H Creatinine 4.7 mg/dL (0.6-1.0) H Estimated GFR (Cockcroft-Gault) 11.3 BUN/Creatinine Ratio 6 (6-20) Glucose Level 93 mg/dL (70-99) Calcium Level 7.8 mg/dL (8.5-10.1) L Total Bilirubin 0.5 mg/dL (0.2-1.0) Aspartate Amino Transferase (AST) 44 U/L (15-37) H Alanine Aminotransferase (ALT) 51 U/L (14-59) Alkaline Phosphatase 397 U/L (46-116) H Total Protein 8.0 g/dL (6.4-8.2) Albumin 2.9 g/dL (3.4-5.0) L Albumin/Globulin Ratio 0.6 (1.0-1.7) L Phenytoin (Dilantin) Level 5.5 mcg/mL (10.0-20.0) L Phenytoin Last Dose Date 08/23/21 Phenytoin Last Dose Time 0630 Laboratory Tests 08/23/21 14:30 Laboratory Tests 08/23/21 14:30 Vital Signs: Vital Signs Date Time Temp Pulse Resp B/P (MAP) Pulse Ox O2 Delivery O2 Flow Rate FiO2 08/23/21 17:02 78 16 98 08/23/21 16:02 76 16 100 08/23/21 15:02 78 16 98 08/23/21 14:02 74 18 97 1/12/22 13:51 98.2 81 18 165/76 (105) 98 98.2 Vital Signs Date Time Temp Pulse Resp B/P (MAP) Pulse Ox O2 Delivery O2 Flow Rate FiO2 08/23/21 15:02 78 16 98 08/23/21 13:51 98.2 165/76 (105) 98.2 EKG: EKG: [] Radiology/Procedures: Radiology/Procedures: [] Course & Med Decision Making: Course & Med Decision Making Pertinent Labs and Imaging studies reviewed. (See chart for details) 1600 patient states she feels well she has had no seizure activity while in the department. I did try to contact the epilepsy clinic at the [facility] and only got their voicemail. I then contacted Dr. Marquez here at for consultation on how to titrate Dilantin for this patient. He recommended loading this patient with 500 mg of Dilantin now starting Dilantin 300 mg at night starting tomorrow, and then having patient follow-up next week at the [facility] epileptic clinic. Diya Disclaimer: Diya Disclaimer: This electronic medical record was generated, in whole or in part, using a voice recognition dictation system. Departure Departure Impression: Primary Impression: Seizure Disposition: 01 HOME / SELF CARE / HOMELESS Condition: STABLE Referrals: NO PCP (PCP) Patient Instructions: Seizure, Adult Additional Instructions: Take all your medications as prescribed except for your Dilantin. Starting on August 24, 2021 you will take Dilantin extended release 300 mg at night. You will need to follow-up with the [facility] epilepsy clinic tomorrow by phone and next week have blood drawn for Dilantin level. Return to the emergency department for any concerns regarding your seizure activity that you may have. Scripts Phenytoin Sodium Extended (PHENYTOIN SODIUM EXTENDED) 300 Mg Capsule 1 CAP PO QHS for 30 Days, #30 CAP 0 Refills Prov: ALEX THAYER APRN 08/23/21 ALEX THAYER [employer] Aug 23, 2021 16:59
[2021-08-23 17:02] VITALS: BP 169/73
[2021-08-23] MEDS ORDERED: PHEN300C4 PO (17:12)
== END 2021-08-23 18:00 | disposition home or self-care (01) ==
LOC: ER 13:50
DX: R56.9 Unspecified convulsions (principal); I13.0 Hypertensive heart and chronic kidney disease with heart failure and stage 1 through stage 4 chronic kidney disease, or unspecified chronic kidney disease; N18.9 Chronic kidney disease, unspecified; I50.9 Heart failure, unspecified; Z95.0 Presence of cardiac pacemaker; Z99.2 Dependence on renal dialysis; Z88.6 Allergy status to analgesic agent
CPT/HCPCS: 36415; 80053; 80185; 85025; 99283